=== PATIENT | female | born 1960 | race Caucasian/White ===

== ENCOUNTER 2016-08-02 11:51 | Inpatient (IN) | payer MEDICAID ==
[~2016-08-02] VITALS: Ht 152.4 cm; Wt 136.1 kg
[~2016-08-02 11:51] MED LIST: ALTACE10 MG PO; CATAPRES0.1 MG PO; FERROUS SULFAT140 MG PO; GLUCOPHAGE1000 MG PO; HYDROCODONE-APA1 TAB PO; KLOR-CON 88 MEQ PO; LASIX20 MG PO; LEVEMIR100 U/M1 SQ; MULTIPLE VITAMI1 TA1 PO; PERCOCET 10/3251 TA1 PO
[2016-08-02 13:40] LABS: APPEARANCE CLEAR (CLEAR); BILIRUBIN NEGATIVE (NEGATIVE); COLOR YELLOW (YELLOW); GLUCOSE 1000 mg/dL (NEGATIVE); KETONE SMALL mg/dL (NEGATIVE); LEUKOCYTE ESTERASE TRACE (NEGATIVE); NITRITE NEGATIVE (NEGATIVE); PROTEIN 2+ mg/dL (NEGATIVE); UROBILINOGEN NORMAL (NORMAL)
[2016-08-02 13:41] LABS: WHITE CELLS - URINE 0-5 /hpf (0-5)
[2016-08-02 13:42] LABS: BACTERIA FEW /hpf (NONE SEEN)
[2016-08-02 13:45] LABS: UDS - AMPHET NEGATIVE QUAL (NEGATIVE); UDS - BARB NEGATIVE QUAL (NEGATIVE); UDS - BENZO NEGATIVE QUAL (NEGATIVE); UDS - COCAINE NEGATIVE QUAL (NEGATIVE); UDS - METH NEGATIVE QUAL (NEGATIVE); UDS - OPIATE POSITIVE QUAL (NEGATIVE); UDS - PCP NEGATIVE QUAL (NEGATIVE); UDS - THC NEGATIVE QUAL (NEGATIVE)
[2016-08-02 13:52] LABS: BASOPHILS 0.3 % (0.0-2.0); EOSINOPHILS 0.3 % (0-7); HEMATOCRIT 45.4 % (36.0-48.0); HEMOGLOBIN 15.4 g/dL (12-16); IMMATURE GRANULOCYTES 0.3 % (0-5); LYMPHOCYTES 8.4 % (15-50); MCH 30.3 pg (26.0-34.0); MCHC 33.9 g/dL (31.0-37.0); MCV 89.2 fL (80.0-100.0); MEAN PLATELET VOLUME 10.3 fL (7.4-10.4); MONOCYTES 2.1 % (2-11); NEUTROPHILS 88.6 % (40-80); PLATELET COUNT 172 10x3/uL (130-400); RBC 5.09 10x6/uL (4.00-5.40); RDW 15.6 % (11.5-14.5); WBC 7.1 10x3/uL (4.8-10.8)
[2016-08-02 14:22] LABS: ALBUMIN 4.2 g/dL (3.4-5.0); ALKALINE PHOSPHATASE 144 U/L (46-116); ALT (SGPT) 35 U/L (10-68); BILIRUBIN - TOTAL 0.65 mg/dL (0.2-1.3); CALC OSMOLALITY 276 mosm/kg (275-300); CALCIUM 10.1 mg/dL (8.5-10.1); CARBON DIOXIDE 26.4 mmol/L (21.0-32.0); CHLORIDE - SERUM 91 mmol/L (98-107); CREATININE - SERUM 0.9 mg/dL (0.6-1.3); POTASSIUM - SERUM 4.6 mmol/L (3.5-5.1); PROTEIN - SERUM 8.2 g/dL (6.4-8.2); SODIUM 134 mmol/L (136-145); UREA NITROGEN 9 mg/dL (7-18); eGFR NON AFRICAN AMERICAN 69 mL/min (90-120)
[2016-08-02 14:23] LABS: GLUCOSE 271 mg/dL (74-106); KETONE - SERUM SMALL mg/dL (NEGATIVE)
--- NOTE | 2016-08-02 17:10 | NUR ---
RECEIVED TO ROOM 2234 VIA WC FROM ED. VERY CONFUSED. FOLLOWS SIMPLE COMMANDS BUT UNABLE TO GIVE ANY TYPE OF COHESIVE ANSWERS. YEASTY AREAS NOTED UNDER BOTH BREAST AND IN GROIN. WILL NOTIFY MD OF SAME. ALL QUESTIONS ANSWERED.
[2016-08-02 17:17] VITALS: BP 190/98; BMI 58.7
--- NOTE | 2016-08-02 17:30 | NUR ---
SPOKE WITH BETHANY ON PHONE TO GET HEALTH HISTORY AND MEDS VERIFIED. ALL QUESTIONS ANSWERED.
[2016-08-02] MEDS ORDERED: PEPCID40 MG PO (17:36)
--- NOTE | 2016-08-02 18:00 | NUR ---
IV TO RIGHT HAND OUT AND LAYING ON TOP OF HAND WITH CATH TIP INTACT. 22 GAUGE IV SITED TO RIGHT FOREARM X1 ATTEMPT. FLUSHES EASY WITH BRISK BLOOD RETURN PRESENT. SECURED WITH TAPE. WELL TOLERATED.
--- NOTE | 2016-08-02 18:56 | NUR ---
FAMILY HERE TO STAY WITH PATIENT FOR THE NIGHT R/T PATIENT'S CONFUSION. WILL CONTINUE TO MONITOR.
[2016-08-02 19:00] VITALS: BP 158/79
--- NOTE | 2016-08-02 19:40 | NUR ---
ASSESSMENT COMPLETED, NO ACUTE DISTRESS NOTED, DENIES NEEDS, FAMILY IN ROOM, CL IN REACH
--- NOTE | 2016-08-02 21:54 | NUR ---
INSULIN GIVEN PER SLIDING SCALE FOR BS OF 254, ENRRIQUE WELL, FAMILY IN ROOM, FALL PRECAUTIONS IN PLACE
[2016-08-03] VITALS: BP 172/67
--- NOTE | 2016-08-03 01:35 | NUR ---
UP TO RESTROOM WITH NO DISTRESS NOTED, RETURNED TO BED, SR'S UP, ALARM ON, CL IN REACH, FAMILY IN ROOM
[2016-08-03 05:01] LABS: BASOPHILS 0.2 % (0.0-2.0); EOSINOPHILS 0.3 % (0-7); HEMATOCRIT 42.3 % (36.0-48.0); HEMOGLOBIN 14.2 g/dL (12-16); IMMATURE GRANULOCYTES 0.5 % (0-5); LYMPHOCYTES 25.4 % (15-50); MCH 30.3 pg (26.0-34.0); MCHC 33.6 g/dL (31.0-37.0); MCV 90.4 fL (80.0-100.0); MEAN PLATELET VOLUME 10.2 fL (7.4-10.4); MONOCYTES 9.4 % (2-11); NEUTROPHILS 64.2 % (40-80); PLATELET COUNT 175 10x3/uL (130-400); RBC 4.68 10x6/uL (4.00-5.40); RDW 15.9 % (11.5-14.5); WBC 5.9 10x3/uL (4.8-10.8)
[2016-08-03 05:26] LABS: HEMOGLOBIN A1C 8.2 % (4.8-6.0)
[2016-08-03 05:28] LABS: ERYTHROCYTE SEDIMENTATION RATE 13 mm/hr (0-30)
[2016-08-03 05:29] LABS: ALBUMIN 3.2 g/dL (3.4-5.0); ALKALINE PHOSPHATASE 103 U/L (46-116); ALT (SGPT) 26 U/L (10-68); AMYLASE - SERUM 128 U/L (25-115); CALC OSMOLALITY 269 mosm/kg (275-300); CALCIUM 8.9 mg/dL (8.5-10.1); CARBON DIOXIDE 28.8 mmol/L (21.0-32.0); CHLORIDE - SERUM 95 mmol/L (98-107); CHOLESTEROL, TOTAL 176 mg/dL (0-200); CKMB 0.3 U/L (0.0-3.6); CREATININE - SERUM 0.7 mg/dL (0.6-1.3); GLUCOSE 234 mg/dL (74-106); HDL CHOLESTEROL 58 mg/dL (32-96); LDL CHOLESTEROL 88 mg/dL (0-100); LDL-HDL RATIO 1.5 ratio (1.5-3.5); LIPASE 157 U/L (73-393); MAGNESIUM - SERUM 1.7 mg/dL (1.8-2.4); PHOSPHOROUS 3.3 mg/dL (2.5-4.9); POTASSIUM - SERUM 3.6 mmol/L (3.5-5.1); SODIUM 131 mmol/L (136-145); THYROID STIMULATING HORMONE 0.74 uIU/mL (0.36-3.74); TRIGLYCERIDE 152 mg/dL (30-200); TROPONIN-I < 0.017 ng/mL (0.000-0.060); UREA NITROGEN 9 mg/dL (7-18); eGFR NON AFRICAN AMERICAN > 90 mL/min (90-120)
[2016-08-03 08:07] VITALS: BP 149/60
--- NOTE | 2016-08-03 09:00 | NUR ---
ASSESSMEN TPER FLOW SHEET.PT WITHOUT DISTRESS.DENIES NEEDS.CALL LIGHT IN REACH
--- NOTE | 2016-08-03 10:30 | NUR ---
STILL DECLING IV TO BE HOOKED UP AND TELEMETRY.PT INSTRUCTED NOT TO GET OUT OF BED,BUT TO CALL FOR HELP
--- NOTE | 2016-08-03 11:52 | NUR ---
SPOKE WITH MATTHEW AT OFFICE.US REPEAT NOT NEEDED PER
[2016-08-03 12:09] VITALS: BP 146/74
[2016-08-03 14:14] VITALS: Ht 152.4 cm; Wt 136.1 kg
[2016-08-03 16:37] VITALS: BP 157/52
[2016-08-03 17:06] LABS: APPEARANCE CLEAR (CLEAR); BILIRUBIN NEGATIVE (NEGATIVE); COLOR YELLOW (YELLOW); GLUCOSE 1000 mg/dL (NEGATIVE); KETONE NEGATIVE (NEGATIVE); LEUKOCYTE ESTERASE TRACE (NEGATIVE); NITRITE NEGATIVE (NEGATIVE); PROTEIN TRACE mg/dL (NEGATIVE); SPECIFIC GRAVITY 1.015 (1.005-1.020); UROBILINOGEN NORMAL (NORMAL)
[2016-08-03 17:07] LABS: BACTERIA FEW /hpf (NONE SEEN); EPITHELIAL CELLS 0-5 /hpf (0-5); RED CELLS - URINE OCC /hpf (0-5); WHITE CELLS - URINE 0-5 /hpf (0-5)
--- NOTE | 2016-08-03 17:14 | NUR ---
CALL TO PHARMACY FOR INSULIN,SPOKE WITH BRANDY
--- NOTE | 2016-08-03 18:43 | NUR ---
REMAINS WIHTOUT NEEDS,WITHOUT CHANGE.CONT PLAN OF CARE
[2016-08-03 19:00] VITALS: BP 183/80
--- NOTE | 2016-08-03 20:00 | NUR ---
ASSESSMENT COMPLETED, NO ACUTE DISTRESS NOTED, DTR IN ROOM, PT DENIES PAIN OR NEEDS, CL IN REACH, WILL MONITOR
--- NOTE | 2016-08-03 21:44 | NUR ---
MEDS GIVEN PER MAR, ENRRIQUE WELL, DTR AT BEDSIDE, DENIES NEEDS, CL IN REACH
--- NOTE | 2016-08-03 23:50 | NUR ---
RESTING WITH EYES CLOSED, RESP WITH EASE, NO DISTRESS NOTED, DTR IN ROOM, CL IN REACH
[2016-08-04] VITALS: BP 165/78
--- NOTE | 2016-08-04 01:30 | NUR ---
CONTINUES TO REST WITH EYES CLOSED, RESP WITH EASE, CL IN REACH
[2016-08-04 04:00] VITALS: BP 127/62
[2016-08-04 06:33] LABS: BASOPHILS 0.5 % (0.0-2.0); EOSINOPHILS 1.7 % (0-7); HEMATOCRIT 40.9 % (36.0-48.0); HEMOGLOBIN 13.4 g/dL (12-16); IMMATURE GRANULOCYTES 0.3 % (0-5); MCH 29.9 pg (26.0-34.0); MCHC 32.8 g/dL (31.0-37.0); MCV 91.3 fL (80.0-100.0); MEAN PLATELET VOLUME 10.1 fL (7.4-10.4); MONOCYTES 9.8 % (2-11); NEUTROPHILS 54.7 % (40-80); PLATELET COUNT 177 10x3/uL (130-400); RBC 4.48 10x6/uL (4.00-5.40); RDW 15.8 % (11.5-14.5); WBC 6.3 10x3/uL (4.8-10.8)
[2016-08-04 06:46] LABS: INR 1.01 (0.85-1.17); PROTIME 13.1 SECONDS (11.6-15.0)
[2016-08-04 06:51] LABS: ALBUMIN 3.3 g/dL (3.4-5.0); ALKALINE PHOSPHATASE 96 U/L (46-116); ALT (SGPT) 32 U/L (10-68); CALCIUM 9.1 mg/dL (8.5-10.1); CHLORIDE - SERUM 104 mmol/L (98-107); CREATININE - SERUM 0.8 mg/dL (0.6-1.3); POTASSIUM - SERUM 3.7 mmol/L (3.5-5.1); PROTEIN - SERUM 7.1 g/dL (6.4-8.2); SODIUM 141 mmol/L (136-145); UREA NITROGEN 11 mg/dL (7-18); eGFR NON AFRICAN AMERICAN 78 mL/min (90-120)
[2016-08-04 06:53] LABS: CALC OSMOLALITY 280 mosm/kg (275-300); GLUCOSE 110 mg/dL (74-106)
--- NOTE | 2016-08-04 07:25 | NUR ---
RECEIVED REPORT. ASSUMED CARE OF PATIENT. ALERT/AWAKE. CALL LIGHT WITHIN REACH. PATIENT COMPLAINING OF SLIGHT HEADACHE THIS AM. NO ACUTE DISTRESS. RESP EVEN AND UNLABORED.
[2016-08-04 08:28] VITALS: BP 216/85
--- NOTE | 2016-08-04 11:09 | NUR ---
Patient Name: ALISTAIR CLEANING Admission Status: ER Accout number: [id number] Admission Date: 08-02-2016 : 1960 Admission Diagnosis: Attending: ANDRY Current LOS: 2 Anticipated DC Date: 08-05-2016 Planned Disposition: Home or Self Care Primary Insurance: MEDICAID [place] Discharge Planning Comments: CM MET WITH PATIENT AND DAUGHTER (GEETA) REGARDING D/C NEEDS AND PLANS. PATIENT STATED HER SPOUSE (BETHANY) WILL PICK HER UP AT DISCHARGE. PATIENT STATED THERE ARE 4 STEPS W/RAILS TO ENTER HOME AND NO STAIRS INSIDE. PATIENT IS INDEPENDENT WITH HER CARE AND HAS NO DME AT HOME. PATIENTS PCP IS DR. PLUNKETT AND PHARMACY IS [facility] [address]. PATIENT DOES NOT WANT HH AT THIS TIME. CM WILL CONTINUE TO FOLLOW PATIENT WITH D/C NEEDS AND PLANS. PCP DR. KIARRA REDDING AND - [phone] AL (DAUGHTER) [phone] BETHANY (SPOUSE) [phone] Braiding Operator: July Medina Is the patient Alert and Oriented? Yes 0 * How many steps to enter\exit or inside your home? 4 W/RAILS 0 * PCP DR. PLUNKETT 0 * Pharmacy [facility] 0 * Preadmission Environment Home with Family 0 * ADLs Independent 0 * Equipment None 0 * List name and contact numbers for known caregivers / representatives who currently or will assist patient after discharge: GEETA (DAUGHTER) [phone] BETHANY (SPOUSE) [phone] 0 * Community resources currently utilized None 0 * Additional services required to return to the preadmission environment? Yes 0 * Can the patient safely return to the preadmission environment? Yes 0 * Has this patient been hospitalized within the prior 30 days at any hospital? No 0 Grand Total: 0
[2016-08-04 11:18] LABS: ANA REFLEX - DIRECT Negative (Negative)
[2016-08-04 11:49] VITALS: BP 151/91
--- NOTE | 2016-08-04 12:12 | NUR ---
FSBS 217. 8 UNITS HUMULIN ADMINISTERED PER SLIDING SCALE AT THIS TIME. NO DISTRESS.
[2016-08-04] MEDS ORDERED: DIFLUCAN100 MG PO (12:55)
[2016-08-04] MEDS ORDERED: CHRONULAC30 ML PO (12:56)
[2016-08-04] MEDS ORDERED: FOLIC ACID1 MG PO (12:57)
[2016-08-04] MEDS ORDERED: THIAMINE HCL50 MG PO (12:57)
--- NOTE | 2016-08-04 13:10 | NUR ---
22 GAUGE IV REMOVED FROM RIGHT WRIST PATIENT IS BEING DISCHARGED TO HOME. PRESSURE HELD TO SITE. NO BLEEDING FROM SITE. CATHETER TIP INTACT. 2X2 GAUZE APPLIED AND SECURED WITH TAPE. TOLERATED IV REMOVAL WELL.
--- NOTE | 2016-08-04 13:30 | NUR ---
DISCHARGE INSTRUCTIONS PROVIDED. VERBALIZED UNDERSTANDING OF ALL INSTRUCTIONS AND THAT SHE HAS 4 PRESCRIPTIONS TO CFA AT [facility] ON [address]. PATIENT HAD NO QUESTIONS FOR THIS TIMBER GIRDLER.
--- NOTE | 2016-08-04 13:40 | NUR ---
PATIENT LEFT UNIT VIA WHEELCHAIR WITH ALL PERSONAL BELONGINGS. PATIENT BEING DISCHARGED TO HOME WITH FAMILY VIA PRIVATE CAR. NO DISTRESS UPON LEAVING UNIT.
--- NOTE | 2016-08-04 13:46 | NUR ---
08/04/2016 13:43 CM: Case Management CM consult order rec'd to see if Xifaxin is covered by insurance. Rx called to [facility] [address] - Patient has KATELIN & will require PA. PA form filled out, signed by Dr. Burnett & faxed back to [place] [facility] for review.
== END 2016-08-04 13:45 | disposition home or self-care (01) | DRG 642 ==
LOC: D.ER 11:51 → D.MS 16:34
PROVIDERS: Family Medicine; Internal Medicine Gastroenterology; ADMIT Family Medicine Adult Medicine
DX: E72.20 Disorder of urea cycle metabolism, unspecified (principal); G93.41 Metabolic encephalopathy; E11.65 Type 2 diabetes mellitus with hyperglycemia; Z79.4 Long term (current) use of insulin; F10.10 Alcohol abuse, uncomplicated

== ENCOUNTER 2016-10-08 11:10 | Day surgery (SDC) | payer MEDICAID ==
[~2016-10-08] VITALS: Ht 152.4 cm; Wt 103.6 kg
[~2016-10-08 11:10] MED LIST changes: +CHRONULAC30 ML PO; +DIFLUCAN100 MG PO; +FOLIC ACID1 MG PO; +PEPCID40 MG PO; +THIAMINE HCL50 MG PO
[2016-10-08 12:10] LABS: BASOPHILS 0.3 % (0.0-2.0); EOSINOPHILS 1.7 % (0-7); HEMATOCRIT 41.1 % (36.0-48.0); HEMOGLOBIN 13.5 g/dL (12-16); IMMATURE GRANULOCYTES 0.2 % (0-5); LYMPHOCYTES 28.1 % (15-50); MCH 30.4 pg (26.0-34.0); MCHC 32.8 g/dL (31.0-37.0); MCV 92.6 fL (80.0-100.0); MEAN PLATELET VOLUME 10.7 fL (7.4-10.4); MONOCYTES 6.5 % (2-11); NEUTROPHILS 63.2 % (40-80); PLATELET COUNT 217 10x3/uL (130-400); RBC 4.44 10x6/uL (4.00-5.40); RDW 14.1 % (11.5-14.5); WBC 6.7 10x3/uL (4.8-10.8)
[2016-10-08 12:14] VITALS: BP 138/100; Ht 152.4 cm; Wt 103.6 kg
[2016-10-08 12:22] LABS: CALCIUM 9.5 mg/dL (8.5-10.1); CARBON DIOXIDE 27.2 mmol/L (21.0-32.0); CREATININE - SERUM 1.1 mg/dL (0.6-1.3); POTASSIUM - SERUM 4.2 mmol/L (3.5-5.1)
--- NOTE | 2016-10-08 14:40 | NUR ---
1440 AT [facility].
--- NOTE | 2016-10-08 18:21 | NUR ---
1605 IV DC WITH CATHER TIP INTACT
--- NOTE | 2016-10-20 12:04 | OP ---
PATIENT NAME: ALISTAIR CLEANING MEDICAL RECORD: [id number] :58 LOCATION:D.OPS ADMISSION DATE: SURGEON: CHANTEL LEVIN DO DATE OF OPERATION: 10/08/2016 PROCEDURE: Colonoscopy. ENDOSCOPIST: Chantel Levin DO. SCOPE: Olympus video colonoscope. MEDICATIONS: Propofol 1200 mg per anesthesia. INDICATIONS FOR PROCEDURE: Anemia. FINDINGS: Informed consent was given. The patient was made comfortable with the above medication. After reaching an adequate level of sedation by slow IV push, the patient was placed on her left side. The endoscope was then advanced under direct visualization through the anus to the cecum. In the cecum, there were 2 separate polyps. The first was a large, approximately 2 cm flat cecal polyp. Multiple attempts were made to lift this polyp, so that a snare could be performed safely. Due to the location and difficulty with lifting, biopsies were taken without removal of the polyp. There was a second cecal polyp measuring approximately 8 mm in size near the appendiceal orifice. This was removed with cold forceps. After the removal of this polyp, there was a fair amount of blood that was oozing that would not stop spontaneously. For this reason, a single Hemoclip was placed for hemostasis successfully. Upon withdrawal of the scope further, there was a transverse polyp, which measured approximately 6 mm and was sessile. This was removed with cold forceps completely. The remainder of the examination was normal. The prep was fair. A significant amount of washing was performed in the cecum and ascending colon. Withdrawal time was greater than 15 minutes. IMPRESSION: Three separate colon polyps as described above, the largest being nearly 2 cm and flat in the cecum. RECOMMENDATIONS: 1. Regarding the patient's anemia, I would recommend IV iron infusions as she has had a gastric bypass in the past and is not absorbing iron due to the bypassed segment of the duodenum. 2. Regarding the patient's large flat cecal polyp, a referral will be made to Dr. Nava for consideration of argon cauterization of the polyp. Following this, I would recommend a repeat colonoscopy in 6 months for repeat visualization of these polyps and further surveillance of the colon. TRANSINT:[id number] Voice Confirmation ID: [id number] DOCUMENT ID: [id number] OPERATIVE REPORT [id number] ALISTAIR CLEANING CHANTEL LEVIN DO at 1204 CC: [id number] DICTATION DATE: 10/08/16 1520 [facility]: 10/08/16 2324 [facility] 10/08/16 [id number] [place] [address]
== END 2016-10-08 16:45 | disposition home or self-care (01) ==
LOC: D.OPS 11:10
PROVIDERS: Anesthesiology
DX: D12.0 Benign neoplasm of cecum (principal); D12.3 Benign neoplasm of transverse colon; J45.909 Unspecified asthma, uncomplicated; I10 Essential (primary) hypertension; K21.9 Gastro-esophageal reflux disease without esophagitis; E11.9 Type 2 diabetes mellitus without complications; K74.60 Unspecified cirrhosis of liver; M19.90 Unspecified osteoarthritis, unspecified site; Z98.84 Bariatric surgery status

== ENCOUNTER 2017-02-10 06:50 | Day surgery (SDC) | payer MEDICAID ==
[~2017-02-10] VITALS: Ht 152.4 cm; Wt 106.4 kg
[~2017-02-10 06:50] MED LIST changes: +ALDACTAZIDE 25/1 TAB PO; +FUROSEMIDE20 MG PO; +NOVOLOG MIX 70/10 ML SQ; +POTASSIUM99 M1 PO; +TENORMIN50 MG PO
[2017-02-10 07:52] VITALS: BP 104/47; Ht 152.4 cm; Wt 106.4 kg
[2017-02-10 07:54] LABS: HEMATOCRIT 38.1 % (36.0-48.0); HEMOGLOBIN 12.5 g/dL (12-16); MCH 30.5 pg (26.0-34.0); MCHC 32.8 g/dL (31.0-37.0); MCV 92.9 fL (80.0-100.0); MEAN PLATELET VOLUME 9.9 fL (7.4-10.4); RBC 4.1 10x6/uL (4.00-5.40); RDW 13.5 % (11.5-14.5); WBC 6.9 10x3/uL (4.8-10.8)
[2017-02-10 07:58] LABS: APTT 26.5 SECONDS (22.8-39.4); INR 1.03 (0.85-1.17); PROTIME 13.3 SECONDS (11.6-15.0)
[2017-02-10 08:15] LABS: ALBUMIN 3.7 g/dL (3.4-5.0); BILIRUBIN - TOTAL 0.57 mg/dL (0.2-1.3); CALCIUM 8.9 mg/dL (8.5-10.1); CARBON DIOXIDE 21.3 mmol/L (21.0-32.0); CREATININE - SERUM 1.1 mg/dL (0.6-1.3); POTASSIUM - SERUM 4.3 mmol/L (3.5-5.1); PROTEIN - SERUM 7.5 g/dL (6.4-8.2)
== END 2017-02-10 14:45 | disposition home or self-care (01) ==
LOC: D.OPS 06:50 → D.PAN 08:00 → D.OPS 08:30
PROVIDERS: Anesthesiology
DX: D12.0 Benign neoplasm of cecum (principal); Z01.812 Encounter for preprocedural laboratory examination

== ENCOUNTER 2017-03-28 07:41 | Emergency (ER) | payer MEDICAID ==
[2017-02-10 07:52] VITALS: BMI 45.7
== END 2017-03-28 08:32 | disposition home or self-care (01) ==
LOC: D.ER 07:41
DX: S42.251A Displaced fracture of greater tuberosity of right humerus, initial encounter for closed fracture (principal); W01.0XXA Fall on same level from slipping, tripping and stumbling without subsequent striking against object, initial encounter; Y93.89 Activity, other specified; Y92.89 Other specified places as the place of occurrence of the external cause; I10 Essential (primary) hypertension

== ENCOUNTER 2018-12-27 10:23 | Emergency (ER) | payer MEDICAID ==
[~2018-12-27] VITALS: Ht 152.4 cm; Wt 119.1 kg
[2018-12-27 10:28] VITALS: Ht 152.4 cm; Wt 119.1 kg
[2018-12-27] MEDS ORDERED: SYNJARDY (10:32)
[2018-12-27 11:31] LABS: APPEARANCE CLEAR (CLEAR); COLOR YELLOW (YELLOW); GLUCOSE 250 mg/dL (NEGATIVE); NITRITE NEGATIVE (NEGATIVE); PROTEIN NEGATIVE (NEGATIVE)
[2018-12-27 11:32] LABS: BACTERIA FEW /hpf (NONE SEEN); BILIRUBIN NEGATIVE (NEGATIVE); EPITHELIAL CELLS OCC /hpf (0-5); KETONE NEGATIVE (NEGATIVE); RED CELLS - URINE 0-5 /hpf (0-5); UROBILINOGEN NORMAL (NORMAL); WHITE CELLS - URINE OCC /hpf (0-5)
[2018-12-27] MEDS ORDERED: MACROBID100 MG PO (12:45)
[2018-12-27] MEDS ORDERED: VOLTAREN75 MG PO (12:45)
[2018-12-27 13:40] VITALS: BP 185/85
== END 2018-12-27 13:41 | disposition home or self-care (01) ==
LOC: D.ER 10:23
PROVIDERS: Emergency Medicine
DX: M54.5 Low back pain (principal); N39.0 Urinary tract infection, site not specified; V43.62XA Car passenger injured in collision with other type car in traffic accident, initial encounter; Y93.89 Activity, other specified; Y92.410 Unspecified street and highway as the place of occurrence of the external cause

== ENCOUNTER 2019-01-08 18:00 | Emergency (ER) | payer MEDICAID ==
[~2019-01-08] VITALS: Ht 152.4 cm; Wt 122.3 kg
[~2019-01-08 18:00] MED LIST changes: +MACROBID100 MG PO; +SYNJARDY; +VOLTAREN75 MG PO
[2019-01-08 18:13] VITALS: Ht 152.4 cm; Wt 122.3 kg
[2019-01-08 20:01] LABS: BASOPHILS 0.7 % (0-2); EOSINOPHILS 3.2 % (0-7); HEMATOCRIT 33.1 % (36.0-48.0); HEMOGLOBIN 11.4 g/dL (12-16); IMMATURE GRANULOCYTES 0.1 % (0-5); LYMPHOCYTES 24.2 % (15-50); MCH 30.3 pg (26.0-34.0); MCHC 34.4 g/dL (31.0-37.0); MEAN PLATELET VOLUME 8.9 fL (7.4-10.4); MONOCYTES 8.2 % (2-11); NEUTROPHILS 63.6 % (40-80); PLATELET COUNT 277 10x3/uL (130-400); RBC 3.76 10x6/uL (4.00-5.40); RDW 13.3 % (11.5-14.5); WBC 7.5 10x3/uL (4.8-10.8)
[2019-01-08 20:17] LABS: ALBUMIN 3.8 g/dL (3.4-5.0); ANION GAP 15.8 mmol/L (8-16); BILIRUBIN - TOTAL 0.38 mg/dL (0.2-1.3); CALCIUM 9.3 mg/dL (8.5-10.1); CARBON DIOXIDE 25.4 mmol/L (21.0-32.0); CREATININE - SERUM 2.1 mg/dL (0.6-1.3); POTASSIUM - SERUM 4.2 mmol/L (3.5-5.1); PROTEIN - SERUM 8.5 g/dL (6.4-8.2)
[2019-01-08 20:53] LABS: APPEARANCE TURBID (CLEAR); COLOR RED (YELLOW)
[2019-01-08 20:54] LABS: BILIRUBIN NEGATIVE (NEGATIVE); GLUCOSE 250 mg/dL (NEGATIVE); KETONE NEGATIVE (NEGATIVE); NITRITE POSITIVE (NEGATIVE); PROTEIN 2+ mg/dL (NEGATIVE); UROBILINOGEN NORMAL (NORMAL)
[2019-01-08 20:56] LABS: EPITHELIAL CELLS 0-5 /hpf (0-5); RED CELLS - URINE >50 /hpf (0-5)
[2019-01-08 20:57] LABS: BACTERIA MODERATE /hpf (NONE SEEN)
[2019-01-08] MEDS ORDERED: MACROBID100 MG PO (22:12)
[2019-01-08 22:41] VITALS: BP 190/84
== END 2019-01-08 22:42 | disposition home or self-care (01) ==
LOC: D.ER 18:00
PROVIDERS: Family Medicine
DX: N39.0 Urinary tract infection, site not specified (principal); E11.9 Type 2 diabetes mellitus without complications; R31.9 Hematuria, unspecified; I10 Essential (primary) hypertension; M54.5 Low back pain; N28.9 Disorder of kidney and ureter, unspecified

== ENCOUNTER 2019-02-25 08:54 | Inpatient (IN) | payer MEDICAID ==
[~2019-02-25] VITALS: Ht 152.4 cm; Wt 123.4 kg
[2019-02-25 09:30] LABS: BASOPHILS 0.6 % (0-2); EOSINOPHILS 5.6 % (0-7); HEMATOCRIT 20.4 % (36.0-48.0); IMMATURE GRANULOCYTES 0.2 % (0-5); LYMPHOCYTES 18.5 % (15-50); MCH 30.5 pg (26.0-34.0); MCHC 35.3 g/dL (31.0-37.0); MCV 86.4 fL (80.0-100.0); MEAN PLATELET VOLUME 8.9 fL (7.4-10.4); MONOCYTES 8.6 % (2-11); NEUTROPHILS 66.5 % (40-80); RBC 2.36 10x6/uL (4.00-5.40); RDW 14.5 % (11.5-14.5); WBC 4.9 10x3/uL (4.8-10.8)
[2019-02-25 09:33] LABS: HEMOGLOBIN 7.2 g/dL (12-16); PLATELET COUNT 337 10x3/uL (130-400)
[2019-02-25 09:34] LABS: APPEARANCE HAZY (CLEAR); APTT 32.3 SECONDS (22.8-39.4); BACTERIA NONE SEEN /hpf (NONE SEEN); BILIRUBIN NEGATIVE (NEGATIVE); COLOR YELLOW (YELLOW); EPITHELIAL CELLS 0-5 /hpf (0-5); GLUCOSE NEGATIVE (NEGATIVE); INR 1.11 (0.85-1.17); KETONE NEGATIVE (NEGATIVE); NITRITE NEGATIVE (NEGATIVE); PROTEIN NEGATIVE (NEGATIVE); PROTIME 13.8 SECONDS (11.6-15.0); UROBILINOGEN NORMAL (NORMAL)
[2019-02-25 09:38] LABS: ANION GAP 19.9 mmol/L (8-16); BILIRUBIN - TOTAL 0.41 mg/dL (0.2-1.3); CALCIUM 9.1 mg/dL (8.5-10.1); CARBON DIOXIDE 17.8 mmol/L (21.0-32.0); CREATININE - SERUM 2.5 mg/dL (0.6-1.3); POTASSIUM - SERUM 4.7 mmol/L (3.5-5.1); PROTEIN - SERUM 8.2 g/dL (6.4-8.2)
[2019-02-25 10:41] VITALS: BP 153/58; BMI 53.2
--- NOTE | 2019-02-25 11:05 | NUR ---
BLOOD TRANSFUSION INITIATED. VITALS STABLE.
--- NOTE | 2019-02-25 11:20 | NUR ---
BLOOD CONTINUES INFUSING. VITALS REMAIN STABLE.
--- NOTE | 2019-02-25 13:00 | NUR ---
RESTING IN BED. DAUGHTER AT BEDSIDE. DENIES PAIN. DENIES NEEDS. WILL CONTINUE TO MONITOR.
--- NOTE | 2019-02-25 13:52 | NUR ---
BLOOD TRANFUSION UNIT 1 COMPLETE. VITALS STABLE.
--- NOTE | 2019-02-25 14:00 | NUR ---
BLOOD TRANSFUSION UNIT 2 INITIATED. VITALS STABLE.
--- NOTE | 2019-02-25 14:15 | NUR ---
BLOOD CONTINUES INFUSING. VITALS REMAIN STABLE.
--- NOTE | 2019-02-25 16:33 | NUR ---
TIMING OF IRON ADMINISTRATION ADJUSTED D/T PATIENT RECEIVING BLOOD
--- NOTE | 2019-02-25 16:55 | NUR ---
BLOOD TRANSFUSION UNIT 2 COMPLETE. VITALS STABLE.
--- NOTE | 2019-02-25 17:05 | NUR ---
BLOOD TRANSFUSION UNIT 3 INITIATED. VITALS STABLE.
[2019-02-25 17:17] LABS: HEMATOCRIT 24.2 % (36.0-48.0); HEMOGLOBIN 8.4 g/dL (12-16)
--- NOTE | 2019-02-25 17:19 | NUR ---
BLOOD CONTINUES INFUSING. VITALS REMAIN STABLE.
--- NOTE | 2019-02-25 17:37 | NUR ---
BLOOD TRANSFUSING. WILL PASS REPORT TO NOC ANALYST RN TO GIVE IRON WHEN BLOOD TRANSFUSION COMPLETE.
--- NOTE | 2019-02-25 17:44 | NUR ---
RESTING IN BED. DENIES PAIN. DENIES NEEDS. DAUGHTER AT BEDSIDE. WILL CONTINUE TO MONITOR.
--- NOTE | 2019-02-25 18:26 | NUR ---
RESTING IN BED. DAUGHTER AT BEDSIDE. BED LOW. CALL CALVERT AND PERSONAL ITEMS IN REACH. DENIES PAIN. DENIES NEEDS.
--- NOTE | 2019-02-25 19:15 | NUR ---
RECEIVED CARE FROM DAY NURSE. SITTING UP IN BED WITH COMPANY AT SIDE. IV INFUSING BLOOD TO PATENT RIGHT WRIST. CALL LIGHT AT SIDE. REPORTS NO NEEDS AT THIS TIME.
[2019-02-25 20:00] VITALS: BP 160/61
[2019-02-26] VITALS: BP 169/65
--- NOTE | 2019-02-26 03:00 | NUR ---
I have reviewed this patient and I concur with the Shift Assessment completed by the Licensed Practical Nurse today this shift.
[2019-02-26 04:00] VITALS: BP 152/59
[2019-02-26 05:57] LABS: BASOPHILS 0.6 % (0-2); HEMATOCRIT 24.7 % (36.0-48.0); HEMOGLOBIN 8.8 g/dL (12-16); IMMATURE GRANULOCYTES 0.2 % (0-5); LYMPHOCYTES 8.7 % (15-50); MCH 29.8 pg (26.0-34.0); MCHC 35.6 g/dL (31.0-37.0); MCV 83.7 fL (80.0-100.0); MEAN PLATELET VOLUME 8.8 fL (7.4-10.4); MONOCYTES 10.3 % (2-11); NEUTROPHILS 77.2 % (40-80); PLATELET COUNT 228 10x3/uL (130-400); RBC 2.95 10x6/uL (4.00-5.40); RDW 15.7 % (11.5-14.5); WBC 4.9 10x3/uL (4.8-10.8)
[2019-02-26 06:10] LABS: ALBUMIN 3.2 g/dL (3.4-5.0); ANION GAP 17.5 mmol/L (8-16); BILIRUBIN - TOTAL 1.78 mg/dL (0.2-1.3); CALCIUM 8.5 mg/dL (8.5-10.1); CARBON DIOXIDE 16.9 mmol/L (21.0-32.0); CREATININE - SERUM 2.2 mg/dL (0.6-1.3); MAGNESIUM - SERUM 2.6 mg/dL (1.8-2.4); POTASSIUM - SERUM 4.4 mmol/L (3.5-5.1)
--- NOTE | 2019-02-26 09:00 | NUR ---
ALERT AND ORIENTED X4. ABDOMEN OBESE WITH BS NOTEDX4. IVF INFUSING RT. WRIST. TELEMETRY INTACT WITH HRRR. FAMILY PRESENT AND ENCOURAGED TO USE CALL LIGHT FOR ASSIST. ENCOURAGED TO USE CALL LIGHT FOR ASSIST. DENIES ANY PAIN OR DISCOMFORT.
[2019-02-26 09:08] VITALS: BP 162/61
[2019-02-26 11:36] VITALS: BP 179/57
[2019-02-26 16:31] VITALS: BP 174/66
[2019-02-26 17:59] LABS: HEMATOCRIT 25.8 % (36.0-48.0); HEMOGLOBIN 8.9 g/dL (12-16)
--- NOTE | 2019-02-26 19:15 | NUR ---
RECEIVED CARE FROM DAY NURSE. LYING IN BED WITH DAUGHTER AT SIDE. REPORTS NO NEEDS AT THIS TIME. CALL LIGHT AT SIDE. IV INFUSING PER ORDER TO PATENT RIGHT WRIST. NO NEEDS VOICED AT THIS TIME.
[2019-02-26 20:00] VITALS: BP 177/80
[2019-02-27] VITALS: BP 173/60
--- NOTE | 2019-02-27 03:00 | NUR ---
I have reviewed this patient and I concur with the Shift Assessment completed by the Licensed Practical Nurse today this shift.
[2019-02-27 04:00] VITALS: BP 170/62
[2019-02-27 04:55] LABS: BASOPHILS 0.3 % (0-2); EOSINOPHILS 0.9 % (0-7); HEMATOCRIT 24.3 % (36.0-48.0); HEMOGLOBIN 8.3 g/dL (12-16); IMMATURE GRANULOCYTES 0.1 % (0-5); LYMPHOCYTES 6.4 % (15-50); MCH 29.2 pg (26.0-34.0); MCHC 34.2 g/dL (31.0-37.0); MCV 85.6 fL (80.0-100.0); MEAN PLATELET VOLUME 8.8 fL (7.4-10.4); MONOCYTES 6.6 % (2-11); NEUTROPHILS 85.7 % (40-80); PLATELET COUNT 249 10x3/uL (130-400); RBC 2.84 10x6/uL (4.00-5.40); RDW 15.8 % (11.5-14.5)
[2019-02-27 05:03] LABS: WBC 6.7 10x3/uL (4.8-10.8)
[2019-02-27 05:18] LABS: ALBUMIN 3.2 g/dL (3.4-5.0); ANION GAP 17.1 mmol/L (8-16); BILIRUBIN - TOTAL 0.59 mg/dL (0.2-1.3); CALCIUM 8.4 mg/dL (8.5-10.1); CARBON DIOXIDE 18.9 mmol/L (21.0-32.0); CREATININE - SERUM 2.1 mg/dL (0.6-1.3); MAGNESIUM - SERUM 2.1 mg/dL (1.8-2.4); PROTEIN - SERUM 6.9 g/dL (6.4-8.2)
[2019-02-27 09:02] VITALS: BP 179/70
[2019-02-27 12:54] VITALS: BP 121/98
[2019-02-27 17:00] LABS: HEMATOCRIT 23.6 % (36.0-48.0); HEMOGLOBIN 8.1 g/dL (12-16)
--- NOTE | 2019-02-27 17:11 | NUR ---
PT RESTING IN BED. NO SIGNS OF DISTRESS. ON TELEMETRY 79 SR BBB. IV OUT AT THIS TIME. DENIES ANY NEED AT THIS TIME. CALL LIGHT IN REACH. BED LOW POSITION. FAMILY AT BEDSIDE.
[2019-02-27 17:42] VITALS: BP 180/68
--- NOTE | 2019-02-27 19:36 | NUR ---
IN BED WITH TELEVISION ON, FAMILY AT BEDSIDE. ABLE TO VOICE ALL NEEDS, DENIES PAIN AT THIS TIME. IV TO RIGHT UPPER CHEST PATENT INFUSING NORMAL SALINE AT 125/HR. WILL NOTE ANY CHANGE.
[2019-02-27 21:10] VITALS: BP 176/68
[2019-02-28 01:18] VITALS: BP 160/54
--- NOTE | 2019-02-28 03:43 | NUR ---
HAS RESTED FAIR THIS SHIFT, WAS UP WATCHING TELEVISION AT 0300, IN A PLEASANT MOOD, JOKED, LAUGHED AND SMILED WITH THIS NURSE. DENIED ANY PAIN AT THAT TIME, ABLE TO VOICE ALL NEEDS. WILL NOTE ANY CHANGE.
--- NOTE | 2019-02-28 03:56 | NUR ---
I have reviewed this patient and I concur with the Shift Assessment completed by the Licensed Practical Nurse today this shift.
[2019-02-28 04:31] LABS: BASOPHILS 0.2 % (0-2); EOSINOPHILS 2.3 % (0-7); HEMATOCRIT 23.8 % (36.0-48.0); IMMATURE GRANULOCYTES 0.5 % (0-5); MCH 29.1 pg (26.0-34.0); MCHC 33.6 g/dL (31.0-37.0); MCV 86.5 fL (80.0-100.0); MEAN PLATELET VOLUME 8.7 fL (7.4-10.4); PLATELET COUNT 236 10x3/uL (130-400); RBC 2.75 10x6/uL (4.00-5.40); RDW 16.2 % (11.5-14.5); WBC 6.4 10x3/uL (4.8-10.8)
[2019-02-28 04:51] LABS: ALBUMIN 3.3 g/dL (3.4-5.0); ANION GAP 18.7 mmol/L (8-16); BILIRUBIN - TOTAL 0.68 mg/dL (0.2-1.3); CALCIUM 8.8 mg/dL (8.5-10.1); MAGNESIUM - SERUM 1.6 mg/dL (1.8-2.4); POTASSIUM - SERUM 3.7 mmol/L (3.5-5.1); PROTEIN - SERUM 7.3 g/dL (6.4-8.2)
[2019-02-28 05:22] VITALS: BP 185/46
[2019-02-28 08:43] VITALS: BP 179/73
[2019-02-28 12:04] VITALS: BP 186/79
--- NOTE | 2019-02-28 16:31 | NUR ---
PT RESTING IN BED. NO SIGNS OF DISTRESS. IV TO RIGHT CHEST PATENT NO REDNESS OR TENDERNESS. ON TELEMETRY 83 SR BBB. DENIES ANY NEED AT THIS TIME. CALL LIGHT IN REACH. BED LOW POSITION. FAMILY AT BEDSIDE.
[2019-02-28 17:32] LABS: HEMOGLOBIN 8.1 g/dL (12-16)
--- NOTE | 2019-02-28 18:20 | NUR ---
I have reviewed this patient and I concur with the Shift Assessment completed by the Licensed Practical Nurse today this shift.
[2019-02-28 20:51] VITALS: BP 158/56
--- NOTE | 2019-02-28 23:08 | NUR ---
UP IN BED WITH EYES OPEN AND TELEVISION ON, FAMILY AT BEDSIDE, IV TO RIGHT CHEST IS PATENT WITH FLUIDS RUNNING PER ORDERS. ALERT AND ORIENTED TIMES THREE, SHOWS NO S/S OF ANY ACUTE DISTRESS. ABLE TO VOICE ALL NEEEDS, DENIES PAIN AT THIS TIME. WILL NOTE ANY CHANGE.
--- NOTE | 2019-03-01 02:48 | NUR ---
I have reviewed this patient and I concur with the Shift Assessment completed by the Licensed Practical Nurse today this shift.
[2019-03-01 04:48] VITALS: BP 149/51
[2019-03-01 06:29] LABS: BASOPHILS 0.4 % (0-2); EOSINOPHILS 5.9 % (0-7); HEMATOCRIT 21.1 % (36.0-48.0); IMMATURE GRANULOCYTES 0.2 % (0-5); MCH 28.9 pg (26.0-34.0); MCHC 33.2 g/dL (31.0-37.0); MCV 87.2 fL (80.0-100.0); MEAN PLATELET VOLUME 8.7 fL (7.4-10.4); MONOCYTES 11.1 % (2-11); NEUTROPHILS 64.4 % (40-80); PLATELET COUNT 192 10x3/uL (130-400); RBC 2.42 10x6/uL (4.00-5.40); RDW 16.3 % (11.5-14.5)
[2019-03-01 06:34] LABS: WBC 4.6 10x3/uL (4.8-10.8)
--- NOTE | 2019-03-01 06:49 | NUR ---
NOTIFIED OF [facility]IT[facility] LAB VALUE OF HGB 7 AND HCT 21, NOTIFIED JEROME WITH ORDERS TO NOTIFY DR. RUSH, DR. RUSH GAVE ORDERS FOR 2 UNITS PRBCS. ORDER SUBMITTED, JEROME ALSO ORDERED OCCULT BLOOD TEST. WILL NOTE ANY CHANGE.
[2019-03-01 06:50] LABS: ALBUMIN 2.9 g/dL (3.4-5.0); ANION GAP 16.3 mmol/L (8-16); BILIRUBIN - TOTAL 0.57 mg/dL (0.2-1.3); CALCIUM 8.5 mg/dL (8.5-10.1); CARBON DIOXIDE 19.1 mmol/L (21.0-32.0); CREATININE - SERUM 1.7 mg/dL (0.6-1.3); MAGNESIUM - SERUM 1.7 mg/dL (1.8-2.4); POTASSIUM - SERUM 3.4 mmol/L (3.5-5.1); PROTEIN - SERUM 6.5 g/dL (6.4-8.2)
--- NOTE | 2019-03-01 07:30 | NUR ---
ALERT AND ORIENTED, SITTING UP ON THE SIDE OF THE BED. H&H LOW THIS AM 7.0/21.1. PHYSICIAN AWARE. 2 UNITS PRBCS ORDERED TO TRANSFUSE TODAY. ON ELECTROLYTE PROTOCOL. POTASSIUM AND MAGNESIUM LOW THIS AM, FIRST DOSE GIVEN ON PRIOR SHIFT. PT ACHS. IV TO RIGHT BREAST, NS INFUSING @ 125ML/HR. SITE PATENT WITHOUT REDNESS OR SWELLING. NO C/O PAIN. NO S/S OF ACUTE DISTRESS NOTED. PT DENIES ANY NEEDS AT THIS TIME. CALL LIGHT IN REACH. WILL CONTINUE TO MONITOR.
[2019-03-01 08:48] VITALS: BP 149/84
--- NOTE | 2019-03-01 10:45 | NUR ---
STARTED BLOOD TRANSFUSION. VITALS STABLE. NO C/O PAIN. NO S/S OF ACUTE DISTRESS NOTED. WILL CONTINUE TO MONITOR.
--- NOTE | 2019-03-01 14:09 | NUR ---
PATIENT TAKEN TO SURGERY VIA BED ACCOMPANIED BY OR STAFF.
--- NOTE | 2019-03-01 14:11 | NUR ---
DISCARDED REMAINING PRBC [id number] BAG WITH BLOOD LEFT STILL TO INFUSE, DUE TO IV INFILTRATED AND PATIENT WILL NEED A LINE BY VASCULAR ACCESS NURSE. IV PUMP STATED THAT THERE WAS 199CC INFUSED, DISCARDED REMAINING BLOOD BECAUSE IT WAS CLOSE TO THE 4 HOURS NAEL PER ALFREDO IVY MECHANICAL ENGINEERING DIRECTOR REQUEST RACHNA RANGEL NOTIFED OF ABOVE
[2019-03-01 17:57] LABS: HEMATOCRIT 22.9 % (36.0-48.0); HEMOGLOBIN 7.6 g/dL (12-16)
--- NOTE | 2019-03-01 18:00 | NUR ---
STARTED 2ND UNIT OF PRBC. MIX UP IN LAB ON UNIT OF PRBC. PT VITALS STABLE. NO C/O PAIN. NO S/S OF ACUTE DISTRESS NOTED. PT DENIES ANY NEEDS. WILL CONTINUE TO MONITOR.
[2019-03-01 18:20] VITALS: BP 173/63
--- NOTE | 2019-03-01 18:50 | NUR ---
ALERT AND ORIENTED. BLOOD TRANSFUSING. NO C/O PAIN. NO S/S OF ACUTE DISTRESS NOTED. PT DENIES ANY NEEDS. CALL LIGHT IN REACH. WILL CONTINUE TO MONITOR.
[2019-03-01 22:18] VITALS: BP 176/62
--- NOTE | 2019-03-02 04:43 | NUR ---
I have reviewed this patient and I concur with the Shift Assessment completed by the Licensed Practical Nurse today this shift.
[2019-03-02 05:46] VITALS: BP 142/56
[2019-03-02 07:11] LABS: BASOPHILS 0.8 % (0-2); EOSINOPHILS 7.4 % (0-7); HEMATOCRIT 23.6 % (36.0-48.0); HEMOGLOBIN 7.9 g/dL (12-16); IMMATURE GRANULOCYTES 0.3 % (0-5); LYMPHOCYTES 21.7 % (15-50); MCH 29.6 pg (26.0-34.0); MCHC 33.5 g/dL (31.0-37.0); MCV 88.4 fL (80.0-100.0); MEAN PLATELET VOLUME 9.4 fL (7.4-10.4); MONOCYTES 10.1 % (2-11); NEUTROPHILS 59.7 % (40-80); PLATELET COUNT 194 10x3/uL (130-400); RBC 2.67 10x6/uL (4.00-5.40); RDW 16.6 % (11.5-14.5); WBC 3.8 10x3/uL (4.8-10.8)
[2019-03-02 07:28] LABS: ALBUMIN 2.9 g/dL (3.4-5.0); BILIRUBIN - TOTAL 0.72 mg/dL (0.2-1.3); CALCIUM 8.4 mg/dL (8.5-10.1); CARBON DIOXIDE 18.4 mmol/L (21.0-32.0); CREATININE - SERUM 1.7 mg/dL (0.6-1.3); MAGNESIUM - SERUM 1.6 mg/dL (1.8-2.4); PROTEIN - SERUM 6.5 g/dL (6.4-8.2)
--- NOTE | 2019-03-02 07:30 | NUR ---
ALERT AND ORIENTED. RESTING IN BED, EYES CLOSED. RESPIRATIONS EVEN AND UNLABORED. NO C/O PAIN. NO S/S OF ACUTE DISTRESS NOTED. ON ELECTROLYTE PROTOCOL. PT DENIES ANY NEEDS AT THIS TIME. CALL LIGHT IN REACH. WILL CONTINUE TO MONITOR.
[2019-03-02 07:33] LABS: ANION GAP 17.7 mmol/L (8-16); POTASSIUM - SERUM 4.1 mmol/L (3.5-5.1)
[2019-03-02 10:52] VITALS: BP 142/76
[2019-03-02 13:33] VITALS: BP 183/68
[2019-03-02 17:23] VITALS: BP 193/74
--- NOTE | 2019-03-02 18:52 | NUR ---
ALERT AND ORIENTED, SITTING ON SIDE OF THE BED. IV INFILTRATED, VERY HARD STICK. PT REFUSED LAB DRAW THIS EVENING. PT EMOTIONAL AT TIMES. CALL LIGHT IN REACH. WILL CONTINUE TO MONITOR.
--- NOTE | 2019-03-02 20:50 | NUR ---
IV RESTARTED PER ICU NURSE TO RIGHT WRIST. TOLERATED WELL. NO COMPLAINTS VOICED AT THIS TIME.CL IN REACH
[2019-03-02 21:09] VITALS: BP 177/88
[2019-03-02 21:33] LABS: HEMATOCRIT 26.6 % (36.0-48.0); HEMOGLOBIN 8.7 g/dL (12-16)
[2019-03-03 01:30] VITALS: BP 136/64
--- NOTE | 2019-03-03 03:59 | NUR ---
I have reviewed this patient and I concur with the Shift Assessment completed by the Licensed Practical Nurse today this shift.
[2019-03-03 04:11] LABS: BASOPHILS 0.2 % (0-2); EOSINOPHILS 6.7 % (0-7); HEMATOCRIT 22.9 % (36.0-48.0); IMMATURE GRANULOCYTES 0.2 % (0-5); LYMPHOCYTES 22.3 % (15-50); MCHC 32.8 g/dL (31.0-37.0); MCV 88.4 fL (80.0-100.0); MEAN PLATELET VOLUME 8.9 fL (7.4-10.4); MONOCYTES 10.9 % (2-11); NEUTROPHILS 59.7 % (40-80); PLATELET COUNT 172 10x3/uL (130-400); RBC 2.59 10x6/uL (4.00-5.40); RDW 16.4 % (11.5-14.5)
[2019-03-03 04:12] LABS: HEMOGLOBIN 7.5 g/dL (12-16)
[2019-03-03 04:20] LABS: ALBUMIN 2.7 g/dL (3.4-5.0); ANION GAP 16.8 mmol/L (8-16); BILIRUBIN - TOTAL 0.47 mg/dL (0.2-1.3); CALCIUM 8.3 mg/dL (8.5-10.1); CARBON DIOXIDE 18.1 mmol/L (21.0-32.0); CREATININE - SERUM 1.8 mg/dL (0.6-1.3); POTASSIUM - SERUM 3.9 mmol/L (3.5-5.1); PROTEIN - SERUM 6.1 g/dL (6.4-8.2)
[2019-03-03 06:00] VITALS: BP 166/63
[2019-03-03 08:24] VITALS: BP 165/73
--- NOTE | 2019-03-03 09:00 | NUR ---
ALERT AND ORIENTEDX3 WITH ABDOMEN OBESE WITH BS NOTED. DENIES ANY PAINOR DISCOMFORT AT THIS TIME. IVF INFUSING AT PRESCRIBED RATE TO LT. HAND. ENCOURAGED TO USE CALL LIGHT FOR ASSIST.
--- NOTE | 2019-03-03 09:51 | MORECARE ---
CASE MANAGEMENT DISCHARGE SUMMARY PATIENT: ALISTAIR CLEANING UNIT: [id number] ADM DATE: 02/25/19 AGE: 58 : 58 SEX: F ROOM/BED: D.2226 AUTHOR: ORQUIDEA LOPEZ PHYSICIAN: REFERRING PHYSICIAN: CAROLIN LINDO MD DATE OF SERVICE: 03/03/19 Discharge Plan Patient Name: ALISTAIR CLEANING [facility] [facility] 1960 Planned Disposition: Anticipated Discharge Date: Discharge Date: Expected LOS: Initial Reviewer: [email or web address] Initial Review Date: 03/03/2019 Generated: 03/03/19 10:51 am DCPIA - Discharge Planning Initial Assessment Updated by [email or web address]: Slime Coulter on 03/03/19 9:49 am * Is the patient Alert and Oriented? Yes * PCP SUSAN * Pharmacy [facility] * Preadmission Environment Home with Family * ADLs Independent * Equipment None * List name and contact numbers for known caregivers / representatives who currently or will assist patient after discharge: BETHANY JEAN, * Community resources currently utilized None * Additional services required to return to the preadmission environment? No * Can the patient safely return to the preadmission environment? Yes * Has this patient been hospitalized within the prior 30 days at any hospital? No Patient Name: ALISTAIR CLEANING Page [phone] at [id number] All edits/amendments must be made on the electronic document DICTATION DATE: 03/03/19950 [place] OPERATOR: RAUL 03/03/19950 RPT#: [id number] DC DATE: STATUS: ADM IN [facility] [address] [place] [address] END OF REPORT
[2019-03-03 13:40] VITALS: BP 141/45
[2019-03-03 13:59] VITALS: BMI 53.1
--- NOTE | 2019-03-03 16:15 | NUR ---
STARTED 1ST UNIT PRBC'S WITH NO S/S OF REACTION NOTED VIA MIDLINE TO RUE
[2019-03-03 16:45] VITALS: BP 166/72
[2019-03-03 20:00] VITALS: BP 170/76
[2019-03-03 21:56] LABS: HEMATOCRIT 30.8 % (36.0-48.0); HEMOGLOBIN 10.1 g/dL (12-16)
[2019-03-04] VITALS (9 sets, daily range): BP systolic 100–184; BP diastolic 52–77
[2019-03-04 06:47] LABS: BASOPHILS 0.5 % (0-2); EOSINOPHILS 6.2 % (0-7); HEMATOCRIT 28.5 % (36.0-48.0); HEMOGLOBIN 9.4 g/dL (12-16); IMMATURE GRANULOCYTES 0.3 % (0-5); LYMPHOCYTES 19.8 % (15-50); MCH 29.3 pg (26.0-34.0); MCV 88.8 fL (80.0-100.0); MEAN PLATELET VOLUME 9.2 fL (7.4-10.4); MONOCYTES 11.9 % (2-11); NEUTROPHILS 61.3 % (40-80); PLATELET COUNT 168 10x3/uL (130-400); RDW 15.7 % (11.5-14.5); WBC 3.7 10x3/uL (4.8-10.8)
[2019-03-04 06:48] LABS: RBC 3.21 10x6/uL (4.00-5.40)
[2019-03-04 07:01] LABS: ALBUMIN 2.8 g/dL (3.4-5.0); ANION GAP 15.4 mmol/L (8-16); BILIRUBIN - TOTAL 0.65 mg/dL (0.2-1.3); CALCIUM 8.5 mg/dL (8.5-10.1); CARBON DIOXIDE 20.2 mmol/L (21.0-32.0); CREATININE - SERUM 1.7 mg/dL (0.6-1.3); POTASSIUM - SERUM 3.6 mmol/L (3.5-5.1); PROTEIN - SERUM 6.5 g/dL (6.4-8.2)
--- NOTE | 2019-03-04 09:00 | NUR ---
ALERT AND ORIENTED X3 AND DENIES ANY ABDOMINAL PAIN OR DISCOMFORT ON PALPATION. OBESE ABDOMEN WITH BS NOTED. RT. MIDLINE INTACT TO RUE WITH IVF INFUSING AT PRESCRIBED RATE. SITTING UP ON SOB. ENCOURAGED TO USE CALL LIGHT FOR ASSIST.
[2019-03-04 17:10] LABS: HEMATOCRIT 30.9 % (36.0-48.0); HEMOGLOBIN 10.4 g/dL (12-16)
[2019-03-05] VITALS: BP 173/71
[2019-03-05 04:00] VITALS: BP 150/56
[2019-03-05 07:04] LABS: EOSINOPHILS 6.3 % (0-7); HEMATOCRIT 28.5 % (36.0-48.0); HEMOGLOBIN 9.5 g/dL (12-16); IMMATURE GRANULOCYTES 0.3 % (0-5); LYMPHOCYTES 21.5 % (15-50); MCH 29.6 pg (26.0-34.0); MCHC 33.3 g/dL (31.0-37.0); MCV 88.8 fL (80.0-100.0); MEAN PLATELET VOLUME 9.5 fL (7.4-10.4); MONOCYTES 9.7 % (2-11); NEUTROPHILS 61.2 % (40-80); PLATELET COUNT 172 10x3/uL (130-400); RBC 3.21 10x6/uL (4.00-5.40); RDW 15.8 % (11.5-14.5); WBC 3.8 10x3/uL (4.8-10.8)
[2019-03-05 07:28] LABS: ALBUMIN 2.8 g/dL (3.4-5.0); ANION GAP 16.6 mmol/L (8-16); BILIRUBIN - TOTAL 0.6 mg/dL (0.2-1.3); CALCIUM 8.5 mg/dL (8.5-10.1); CREATININE - SERUM 1.9 mg/dL (0.6-1.3); POTASSIUM - SERUM 3.6 mmol/L (3.5-5.1); PROTEIN - SERUM 6.4 g/dL (6.4-8.2)
[2019-03-05 08:32] VITALS: BP 151/74
--- NOTE | 2019-03-05 10:26 | NUR ---
ALERT AND ORIENTED X3 WITH NO S/S OF ABNORMAL BLEEDING NOTED AT THIS TIME. IVF INFUSINGA T PRESCRIBED RATE TO RT. MIDLINE WITH NO S/S OF ERRYTHEMA OR INFILTRATION. ENCOURAGED TO USE CALL LIGHT FOR ASSIST.
[2019-03-05 13:28] VITALS: BP 168/90
[2019-03-05 16:56] VITALS: BP 169/67
[2019-03-05 17:29] LABS: HEMATOCRIT 31.7 % (36.0-48.0); HEMOGLOBIN 10.4 g/dL (12-16)
[2019-03-05 20:00] VITALS: BP 201/82
[2019-03-06] VITALS: BP 177/60
[2019-03-06 04:00] VITALS: BP 196/85
[2019-03-06 06:03] LABS: BASOPHILS 0.4 % (0-2); EOSINOPHILS 4.6 % (0-7); HEMATOCRIT 30.6 % (36.0-48.0); HEMOGLOBIN 10.1 g/dL (12-16); IMMATURE GRANULOCYTES 0.2 % (0-5); LYMPHOCYTES 13.5 % (15-50); MCH 29.3 pg (26.0-34.0); MCV 88.7 fL (80.0-100.0); MEAN PLATELET VOLUME 9.9 fL (7.4-10.4); MONOCYTES 10.4 % (2-11); NEUTROPHILS 70.9 % (40-80); PLATELET COUNT 206 10x3/uL (130-400); RBC 3.45 10x6/uL (4.00-5.40); RDW 15.7 % (11.5-14.5)
[2019-03-06 06:09] LABS: WBC 5.2 10x3/uL (4.8-10.8)
[2019-03-06 06:36] LABS: ALBUMIN 3.1 g/dL (3.4-5.0); ANION GAP 18.8 mmol/L (8-16); BILIRUBIN - TOTAL 0.75 mg/dL (0.2-1.3); CALCIUM 8.7 mg/dL (8.5-10.1); CARBON DIOXIDE 17.5 mmol/L (21.0-32.0); CREATININE - SERUM 1.7 mg/dL (0.6-1.3); POTASSIUM - SERUM 3.3 mmol/L (3.5-5.1); PROTEIN - SERUM 6.7 g/dL (6.4-8.2)
--- NOTE | 2019-03-06 07:20 | NUR ---
ALERT AND ORIENTED, SITTING UP IN CHAIR. UP AD DESTINEE. NO C/O PAIN. NO S/S OF ACUTE DISTRESS NOTED. ON ELECTROLYTE PROTOCOL, POTASSIUM 3.3. RIGHT UPPER ARM MIDLINE, NS INFUSING @ 125ML/HR. SITE PATENT WITHOUT REDNESS OR SWELLING. PT ACHS. ON TELEMETRY 115 ST. PT C/O URINARY FREQUENCY, OBTAINED URINE FOR TESTING. PT DENIES ANY NEEDS AT THIS TIME. CALL LIGHT IN REACH. WILL CONTINUE TO MONITOR.
[2019-03-06 08:41] VITALS: BP 194/98
[2019-03-06 09:21] LABS: APPEARANCE CLOUDY (CLEAR); BILIRUBIN NEGATIVE (NEGATIVE); COLOR YELLOW (YELLOW); GLUCOSE NEGATIVE (NEGATIVE); KETONE NEGATIVE (NEGATIVE); NITRITE NEGATIVE (NEGATIVE); PROTEIN 3+ mg/dL (NEGATIVE); UROBILINOGEN NORMAL (NORMAL)
[2019-03-06 09:22] LABS: BACTERIA MANY /hpf (NONE SEEN); MUCUS >1+ /lpf (NONE SEEN); RED CELLS - URINE >50 /hpf (0-5); WHITE CELLS - URINE >50 /hpf (0-5)
[2019-03-06 09:23] LABS: AMORPHOUS SEDIMENT >1+ /lpf (NONE SEEN)
--- NOTE | 2019-03-06 12:25 | NUR ---
PT BP 209/96, NOTIFIED ROBERTO VARGAS APRN. LATOYA GARCIA RN GAVE APRESSOLINE IV FOR BP. NO S/S OF ACUTE DISTRESS NOTED. CALL LIGHT IN REACH. WILL CONTINUE TO MONITOR.
[2019-03-06 14:01] VITALS: BP 209/96
[2019-03-06 17:15] VITALS: BP 201/86
--- NOTE | 2019-03-06 19:03 | NUR ---
ALERT AND ORIENTED. NO C/O PAIN. NO S/S OF ACUTE DISTRESS NOTED. MIDLINE TO RIGHT UPPER ARM LEAKING. PT DENIES ANY NEEDS. CALL LIGHT IN REACH. WILL CONTINUE TO MONITOR.
--- NOTE | 2019-03-06 19:40 | NUR ---
SITTING IN CHAIR WITH DAUGHTER AT BEDSIDE, A/O. NO SIGNS OF DISTRESS NOTED. MIDLINE LINE LEAKING IN THE RIGHT UPPER ARM WITH FLUID LEAKING ONTO BED. COMPLET BED CHANGE. VOICES NO PAIN OR OTHER NEEDS AT THIS TIME. WILL CONITINUE TO MONITOR.
[2019-03-06 20:00] VITALS: BP 215/94
[2019-03-07] VITALS: BP 159/62
[2019-03-07 04:00] VITALS: BP 169/61
--- NOTE | 2019-03-07 05:21 | NUR ---
MIDLINE DRESSING CHANGE. SITE IS FREE OF SWELLING AND REDNESS. CONTINUE WITH PLAN OF CARE.
[2019-03-07 06:57] LABS: BASOPHILS 0.4 % (0-2); EOSINOPHILS 0.7 % (0-7); HEMATOCRIT 28.6 % (36.0-48.0); HEMOGLOBIN 9.5 g/dL (12-16); IMMATURE GRANULOCYTES 0.4 % (0-5); LYMPHOCYTES 13.7 % (15-50); MCH 29.3 pg (26.0-34.0); MCHC 33.2 g/dL (31.0-37.0); MCV 88.3 fL (80.0-100.0); MEAN PLATELET VOLUME 9.7 fL (7.4-10.4); MONOCYTES 16.2 % (2-11); NEUTROPHILS 68.6 % (40-80); PLATELET COUNT 202 10x3/uL (130-400); RBC 3.24 10x6/uL (4.00-5.40); RDW 15.7 % (11.5-14.5); WBC 4.5 10x3/uL (4.8-10.8)
[2019-03-07 07:37] LABS: ALBUMIN 2.8 g/dL (3.4-5.0); ANION GAP 17.9 mmol/L (8-16); BILIRUBIN - TOTAL 0.78 mg/dL (0.2-1.3); CARBON DIOXIDE 17.3 mmol/L (21.0-32.0); CREATININE - SERUM 1.6 mg/dL (0.6-1.3); POTASSIUM - SERUM 3.2 mmol/L (3.5-5.1); PROTEIN - SERUM 6.1 g/dL (6.4-8.2)
[2019-03-07 09:33] VITALS: BP 184/77
--- NOTE | 2019-03-07 10:01 | NUR ---
Nutrition follow-up: Diet: ADA PO intake ~50% of meals Labs reviewed Wt: 271# RDN following.
[2019-03-07 11:29] VITALS: BP 173/75
[2019-03-07 14:38] VITALS: Ht 152.4 cm; Wt 123.4 kg
--- NOTE | 2019-03-07 15:02 | NUR ---
PT RESTING IN BED. NO SIGNS OF DISTRESS. IV TO RIGHT UPPER ARM MIDLINE PATENT. ON TELEMETRY 89 SR. HAS LAYNE PATENT NO KINKS. DENIES ANY FUTHER NEED AT THIS TIME. CALL LIGHT IN REACH. BED LOW POSITION. FAMILY AT BEDSIDE.
[2019-03-07 16:35] VITALS: BP 187/84
--- NOTE | 2019-03-07 19:15 | NUR ---
PT LAYING IN BED WITH DAUGHTER AT BEDSIDE. A/O X4 AND SHOWS NO SIGNS OF DISTRESS. RECEIVED IN REPORT THAT MIDLINE STILL LEAKS, SL AND DRESSING INTACT. LAYNE IN PLACE. BLOODY DISCHARGE WITH CLOTS NOTED IN LAYNE BAG AND TUBEING. DENIES PAIN OR OTHER NEEDS. CONTINUE WITH PLAN OF CARE.
[2019-03-07 20:00] VITALS: BP 187/69
[2019-03-08] VITALS: BP 155/60
[2019-03-08 04:00] VITALS: BP 193/55
[2019-03-08 04:43] LABS: BASOPHILS 0.3 % (0-2); EOSINOPHILS 1.6 % (0-7); HEMATOCRIT 32.7 % (36.0-48.0); IMMATURE GRANULOCYTES 0.3 % (0-5); LYMPHOCYTES 18.3 % (15-50); MCH 29.5 pg (26.0-34.0); MCHC 33.6 g/dL (31.0-37.0); MCV 87.7 fL (80.0-100.0); MEAN PLATELET VOLUME 9.8 fL (7.4-10.4); MONOCYTES 11.1 % (2-11); NEUTROPHILS 68.4 % (40-80); RBC 3.73 10x6/uL (4.00-5.40); RDW 15.8 % (11.5-14.5)
[2019-03-08 04:54] LABS: ANION GAP 17.6 mmol/L (8-16); CALCIUM 8.8 mg/dL (8.5-10.1); CARBON DIOXIDE 21.4 mmol/L (21.0-32.0); CREATININE - SERUM 1.3 mg/dL (0.6-1.3)
[2019-03-08 05:05] LABS: PLATELET COUNT 248 10x3/uL (130-400); WBC 6.4 10x3/uL (4.8-10.8)
--- NOTE | 2019-03-08 07:35 | NUR ---
RECIEVED REPORT. PATIENT IS RESTING QUIETLY AT THIS TIME. LAYNE BAG SHOWS RED TINGED URINE. PATIENT DENIES ANY NEEDS AT THIS TIME.
--- NOTE | 2019-03-08 08:44 | NUR ---
B/P OF 181/75 NOTED. TREATING WITH BLOOD PRESSURE MEDICATIONS ORDERED. PATIENT IS SITTING UP IN BED AND DENIES ANY SYMPTOMS OF DISCOMFORT AT THIS TIME. THERE IS A FISH ODOR IN THE ROOM. PATIENT HAS YEAST AROUND HER GROIN . MEDICATIONS APPLIED ORDERED. CALLING VASCULAR ACCESS NURSE AGAIN TODAY TO ASSESS THE MIDLINE IN HER RIGHT ARM. PATIENT AND TAIL PULLER REPORT THAT IT HAS BEEN LEAKING AND IS NOT USABLE. WILL HAVE VASCULAR NURSE ASSESS.
[2019-03-08 09:11] VITALS: BP 181/75
--- NOTE | 2019-03-08 09:49 | NUR ---
VASCULAR NURSE REMOVED THE MIDLINE THAT WAS LEAKING. PATIENT REPORTS THAT SHE THINKS SHE IS GOING HOME. WILL CALL AND ASK DR IF SHE NEEDS IV ACCESS.
[2019-03-08 12:47] VITALS: BP 174/76
[2019-03-08 17:01] VITALS: BP 162/72
--- NOTE | 2019-03-08 17:23 | NUR ---
PATIENT IS RESTING IN BED. FAMILY AT BEDSIDE. SHE DID NOT NEED INSULIN THIS TIME HER BLOOD SUGAR WAS 110. SHE IS STAYING HERE ANOTHER NIGHT AND HER ANTIBIOTICS HAVE BEEN CHANGED TO ORAL.
--- NOTE | 2019-03-08 17:25 | NUR ---
IS AWARE THAT PATIENT DOES NOT HAVE ANY IV ACCESS AND PEYTON SAID IT IS OK TO LEAVE THE IV OUT. PATIENT WILL BE DISCHARGED SOON.
--- NOTE | 2019-03-08 19:47 | NUR ---
PATIENT RESTING IN BED WITH NO NEEDS NOTED OR STATED.ALERT AND ORENTED ABLE TO VOICE NEEDS AND WANTS TO STAFF. WATER AND CALL LIGHT IN REACH , BED LOW, FAMILY AT BEDSIDE. F/C IN PLACE AND PATEN, UP AT DESTINEE. NO IV IN PLACE,
[2019-03-09] VITALS: BP 138/51
[2019-03-09 05:53] LABS: BASOPHILS 0.3 % (0-2); EOSINOPHILS 4.1 % (0-7); HEMATOCRIT 31.3 % (36.0-48.0); HEMOGLOBIN 10.5 g/dL (12-16); IMMATURE GRANULOCYTES 0.2 % (0-5); LYMPHOCYTES 19.4 % (15-50); MCH 29.6 pg (26.0-34.0); MCHC 33.5 g/dL (31.0-37.0); MCV 88.2 fL (80.0-100.0); MEAN PLATELET VOLUME 9.9 fL (7.4-10.4); MONOCYTES 10.9 % (2-11); NEUTROPHILS 65.1 % (40-80); PLATELET COUNT 271 10x3/uL (130-400); RBC 3.55 10x6/uL (4.00-5.40); RDW 15.6 % (11.5-14.5); WBC 5.9 10x3/uL (4.8-10.8)
[2019-03-09 06:06] LABS: ANION GAP 14.6 mmol/L (8-16); CALCIUM 8.6 mg/dL (8.5-10.1); CARBON DIOXIDE 22.9 mmol/L (21.0-32.0); CREATININE - SERUM 1.3 mg/dL (0.6-1.3); POTASSIUM - SERUM 3.5 mmol/L (3.5-5.1)
[2019-03-09 09:22] VITALS: BP 210/83
--- NOTE | 2019-03-09 11:45 | NUR ---
PT RESTING IN BED. NO SIGNS OF DISTRESS. NO IV AT THIS TIME. ON TELEMETRY 73 SR. HAS LAYNE NO KINKS PATENT. DENIES ANY FURTHER NEED AT THIS TIME. CALL LIGHT IN REACH. BED LOW POSITION. FAMILY AT BEDSIDE.
[2019-03-09 13:10] VITALS: BP 184/74
[2019-03-09 18:10] VITALS: BP 185/70
--- NOTE | 2019-03-09 19:15 | NUR ---
PATIENT ALERT AND ORIENTED WITH DAUGHTER AT BEDSIDE. PATIENT HAS NO IV ACCESS AT THIS TIME. BRUISING NOTED TO THE LEFT UPPER ARM. ALSO RIGHT UPPER ARM HAS SMALL BRUISES SCATTERED OVER FOREARM. PATIENT HAS LAYNE CATHETER. WEARING TELEMETRY. UP AD DESTINEE TO THE BATHROOM. STATES "DOCTOR ACTS LIKE I NEED REHAB BUT I CAN WALK AND I GET UP EVERYDAY I JUST DONT HAVE A REASON TO WITH THIS THING IN SIDE OF ME." PATIENT IRRITABLE WHEN TALKING ABOUT HOSPITAL STAY. PROVIDED EDUCATION ON WELLNESS AND PATIENT VERBALIZES UNDERSTANDING. REDDENDED RASH LIKE AREA UNDER ABDOMINAL FOLDS AND GROIN. ROOM AIR. DENIES PAIN AT THIS TIME. HAS CALL LIGHT IN HAND. VERBALIZES HOW TO USE APPROPRIATELY. CPOC.
[2019-03-09 20:42] VITALS: BP 192/73
[2019-03-10 00:39] VITALS: BP 140/44
--- NOTE | 2019-03-10 02:53 | NUR ---
I have reviewed this patient and I concur with the Shift Assessment completed by the Licensed Practical Nurse today this shift.
[2019-03-10 04:40] VITALS: BP 157/67
[2019-03-10 05:11] LABS: BASOPHILS 0.4 % (0-2); HEMATOCRIT 32.3 % (36.0-48.0); HEMOGLOBIN 10.7 g/dL (12-16); IMMATURE GRANULOCYTES 0.2 % (0-5); LYMPHOCYTES 19.5 % (15-50); MCH 29.2 pg (26.0-34.0); MCHC 33.1 g/dL (31.0-37.0); MCV 88.3 fL (80.0-100.0); MEAN PLATELET VOLUME 9.5 fL (7.4-10.4); NEUTROPHILS 62.9 % (40-80); PLATELET COUNT 254 10x3/uL (130-400); RBC 3.66 10x6/uL (4.00-5.40); RDW 15.2 % (11.5-14.5); WBC 5.3 10x3/uL (4.8-10.8)
[2019-03-10 05:35] LABS: CALCIUM 8.3 mg/dL (8.5-10.1); CARBON DIOXIDE 26.6 mmol/L (21.0-32.0); CREATININE - SERUM 1.2 mg/dL (0.6-1.3); POTASSIUM - SERUM 3.6 mmol/L (3.5-5.1)
[2019-03-10 08:14] VITALS: BP 137/71
--- NOTE | 2019-03-10 12:35 | NUR ---
Nutrition follow-up: Diet: ADA consistent CHO PO intake has improved; 100% of most meals now Labs reviewed +BM; blood in stool Wt: 271# RDN following.
[2019-03-10 13:37] VITALS: BP 195/85
[2019-03-10] MEDS ORDERED: LEVOFLOXACIN500 MG PO (16:17)
[2019-03-10] MEDS ORDERED: FLOMAX0.4 MG PO (16:17)
[2019-03-10] MEDS ORDERED: METOPROLOL TART50 MG PO (16:18)
[2019-03-10 16:41] VITALS: BP 135/85
--- NOTE | 2019-03-10 18:09 | NUR ---
PATIENT RECIEVED DC INSTRUCTIONS. VERBALIZED UNDERSTANDING. NO QUESTIONS AT THIS TIME. DAUGHTER AT SIDE. EXPLAINED AND SHOWED PATIENT AND DAUGHTER HOW TO CONNECT CATHETER TO LEG BAG. EXPLAINED TO USE THE DRAINAGE BAG AT NIGHT OR WHEN JUST SITTING AT HOME TO GRAVITY. NO QUESTIONS A TTHIS TIME. EXPLAINED TO KEEP CATHETER AREA CLEAN. VERBALIZED UNDERSTANDING. ALSO EXPLAINED TO CONTINUE USING NYSTATIN POWDER UNDER BREASTS AND ABDOMEN. VERBALIZED UNDERSTANDING. CALLED CAB FOR PATIENT. AWAITING WC FOR DC. CALL LIGHT WITHIN REACH.
== END 2019-03-10 18:29 | disposition home or self-care (01) | DRG 378 ==
LOC: D.ER 08:54 → D.MS 10:17
PROVIDERS: Emergency Medicine; Family Medicine; Internal Medicine Gastroenterology; ADMIT Internal Medicine Nephrology; ATTEND Internal Medicine Nephrology
PROC: 0DJ08ZZ Inspection of Upper Intestinal Tract, Via Natural or Artificial Opening Endoscopic (ICD-10-PCS; principal; 2019-02-27 10:07)
PROC: 05HD33Z Insertion of Infusion Device into Right Cephalic Vein, Percutaneous Approach (ICD-10-PCS; 2019-03-03)
DX: K92.2 Gastrointestinal hemorrhage, unspecified (principal); D62 Acute posthemorrhagic anemia; E87.1 Hypo-osmolality and hyponatremia; N17.9 Acute kidney failure, unspecified; K91.2 Postsurgical malabsorption, not elsewhere classified; N39.0 Urinary tract infection, site not specified; N13.30 Unspecified hydronephrosis; K29.70 Gastritis, unspecified, without bleeding; K20.9 Esophagitis, unspecified; E11.9 Type 2 diabetes mellitus without complications; I10 Essential (primary) hypertension; N32.0 Bladder-neck obstruction; R31.9 Hematuria, unspecified; R33.9 Retention of urine, unspecified

== ENCOUNTER → 2019-03-24 12:12 | Outpatient (CLI) | payer MEDICAID ==
[2019-03-23 16:27] VITALS: BMI 53.2
[~2019-03-24 12:12] MED LIST changes: +FLOMAX0.4 MG PO; +LEVOFLOXACIN500 MG PO; +METOPROLOL TART50 MG PO
[2019-03-24 12:44] LABS: BASOPHILS 0.2 % (0-2); EOSINOPHILS 3.9 % (0-7); HEMATOCRIT 34.7 % (36.0-48.0); HEMOGLOBIN 12.1 g/dL (12-16); IMMATURE GRANULOCYTES 0.2 % (0-5); LYMPHOCYTES 17.3 % (15-50); MCH 29.7 pg (26.0-34.0); MCHC 34.9 g/dL (31.0-37.0); MEAN PLATELET VOLUME 9.9 fL (7.4-10.4); MONOCYTES 8.2 % (2-11); NEUTROPHILS 70.2 % (40-80); PLATELET COUNT 231 10x3/uL (130-400); RBC 4.08 10x6/uL (4.00-5.40); RDW 13.8 % (11.5-14.5); WBC 8.7 10x3/uL (4.8-10.8)
[2019-03-24 14:13] LABS: FERRITIN 522 ng/mL (3-244)
== END | disposition home or self-care (01) ==
LOC: D.LAB 12:12
PROVIDERS: ATTEND Internal Medicine Gastroenterology
DX: D64.9 Anemia, unspecified (principal); Z86.010 Personal history of colon polyps

== ENCOUNTER 2020-02-05 07:49 | Inpatient (IN) | payer MEDICAID ==
[~2020-02-05] VITALS: Ht 152.4 cm; Wt 123.4 kg
[2020-02-05] VITALS (7 sets, daily range): BP systolic 127–156; BP diastolic 45–84; BMI 53.2
[2020-02-05] MEDS ORDERED: ALDACTONE25 MG PO (07:58)
[2020-02-05 08:32] LABS: HEMATOCRIT 33.5 % (36.0-48.0); HEMOGLOBIN 11.5 g/dL (12-16); LYMPHOCYTES 17.5 % (15-50); MCH 29.8 pg (26.0-34.0); MCHC 34.3 g/dL (31.0-37.0); MCV 86.8 fL (80.0-100.0); NEUTROPHILS 73.7 % (40-80); RBC 3.86 10x6/uL (4.00-5.40); RDW 12.8 % (11.5-14.5); WBC 9.1 10x3/uL (4.8-10.8)
[2020-02-05 08:43] LABS: PLATELET COUNT 309 10x3/uL (130-400)
[2020-02-05 08:50] LABS: ALBUMIN 2.9 g/dL (3.4-5.0); ANION GAP 12.8 mmol/L (8-16); BILIRUBIN - TOTAL 0.47 mg/dL (0.2-1.3); C-REACTIVE PROTEIN 6.3 mg/dL (0.0-0.9); CALCIUM 9.3 mg/dL (8.5-10.1); CREATININE - SERUM 1.3 mg/dL (0.6-1.3); POTASSIUM - SERUM 3.8 mmol/L (3.5-5.1); PROTEIN - SERUM 7.9 g/dL (6.4-8.2)
--- NOTE | 2020-02-05 08:55 | NUR ---
CRITICAL LAB GLUCOSE GIVEN TO DR AND NURSE
[2020-02-05 10:55] LABS: ERYTHROCYTE SEDIMENTATION RATE 84 mm/hr (0-30)
--- NOTE | 2020-02-05 12:29 | NUR ---
PROVIDER, GILES WALTERS APRN AWARE OF PTS BS OF 425MG/DL.
--- NOTE | 2020-02-05 19:30 | NUR ---
PT SITTING UP IN BED WITHUOT DISTRESS, AOX4. IV RIGHT HAND SL. DAUGHTER AT BEDSIDE. DENIES PAIN OR NEEDS AT THIS TIME. CL IN REACH, WILL CTM
[2020-02-06] VITALS: BP 143/56
[2020-02-06 04:00] VITALS: BP 152/63
[2020-02-06 05:17] LABS: HEMATOCRIT 31.8 % (36.0-48.0); HEMOGLOBIN 10.5 g/dL (12-16); LYMPHOCYTES 15.4 % (15-50); MCH 29.5 pg (26.0-34.0); MEAN PLATELET VOLUME 8.9 fL (7.4-10.4); NEUTROPHILS 74.5 % (40-80); PLATELET COUNT 276 10x3/uL (130-400); RBC 3.56 10x6/uL (4.00-5.40); RDW 13.1 % (11.5-14.5); WBC 8.6 10x3/uL (4.8-10.8)
[2020-02-06 05:25] LABS: MCV 89.3 fL (80.0-100.0)
[2020-02-06 06:29] LABS: ALBUMIN 2.5 g/dL (3.4-5.0); ANION GAP 7.1 mmol/L (8-16); BILIRUBIN - TOTAL 0.45 mg/dL (0.2-1.3); CARBON DIOXIDE 29.8 mmol/L (21.0-32.0); CREATININE - SERUM 1.3 mg/dL (0.6-1.3); MAGNESIUM - SERUM 2.1 mg/dL (1.8-2.4); POTASSIUM - SERUM 3.9 mmol/L (3.5-5.1); PROTEIN - SERUM 7.2 g/dL (6.4-8.2)
--- NOTE | 2020-02-06 08:00 | NUR ---
PATIENT SITTING UP IN BED WITH NO COMPLAINTS OR SIGNS OF DISTRESS. IV INTACT. CALL LIGHT WITHIN REACH.
[2020-02-06 09:35] VITALS: BP 120/51
[2020-02-06 13:17] VITALS: BP 145/66
[2020-02-06 14:26] VITALS: Ht 152.4 cm; Wt 123.4 kg
--- NOTE | 2020-02-06 17:23 | NUR ---
PATIENT SITTING UP IN BED WITH NO COMPLAINTS OR SIGNS OF DISTRESS. IV INTACT. IV ANTIBIOTIC INFUSING. FAMILY AT BEDSIDE. CALL LIGHT WITHIN REACH.
[2020-02-06 17:47] VITALS: BP 146/58
--- NOTE | 2020-02-06 19:30 | NUR ---
FAMILY SITTING UP IN BED WITHOUT DISTRESS, AOX4. FAMILY AT BEDSIDE. IV RIGHT HAND INFUSING NS @ 75. DRESSING TO RIGHT FOOT CDI. PT DENIES PAIN OR NEEDS. CL IN REACH, WILL CTM
[2020-02-06 20:00] VITALS: BP 118/61
[2020-02-07] VITALS: BP 145/63
[2020-02-07 01:25] LABS: BILIRUBIN NEGATIVE (NEGATIVE); GLUCOSE 500 mg/dL (NEGATIVE); KETONE NEGATIVE (NEGATIVE); NITRITE NEGATIVE (NEGATIVE); SPECIFIC GRAVITY 1.015 (1.005-1.020); UROBILINOGEN NORMAL (NORMAL)
[2020-02-07 01:29] LABS: BACTERIA FEW /hpf (NEGATIVE); EPITHELIAL CELLS 0-5 /hpf (0-5); RED CELLS - URINE 0-5 /hpf (0-5)
[2020-02-07 04:00] VITALS: BP 140/63
[2020-02-07 06:09] LABS: ALBUMIN 2.5 g/dL (3.4-5.0); ANION GAP 10.8 mmol/L (8-16); BILIRUBIN - TOTAL 0.3 mg/dL (0.2-1.3); CALCIUM 9.2 mg/dL (8.5-10.1); CARBON DIOXIDE 27.1 mmol/L (21.0-32.0); CREATININE - SERUM 1.1 mg/dL (0.6-1.3); PHOSPHOROUS 3.7 mg/dL (2.5-4.9); POTASSIUM - SERUM 3.9 mmol/L (3.5-5.1); PROTEIN - SERUM 7.3 g/dL (6.4-8.2)
[2020-02-07 06:22] LABS: HEMATOCRIT 32.2 % (36.0-48.0); HEMOGLOBIN 10.5 g/dL (12-16); LYMPHOCYTES 23.9 % (15-50); MCH 29.9 pg (26.0-34.0); MCHC 32.6 g/dL (31.0-37.0); MCV 91.7 fL (80.0-100.0); MEAN PLATELET VOLUME 9.4 fL (7.4-10.4); NEUTROPHILS 66.2 % (40-80); PLATELET COUNT 297 10x3/uL (130-400); RBC 3.51 10x6/uL (4.00-5.40); RDW 13.3 % (11.5-14.5); WBC 7.3 10x3/uL (4.8-10.8)
--- NOTE | 2020-02-07 08:00 | NUR ---
PATIENT IN BED WITH IV INTACT. NO COMPLAINTS OR SIGNS OF DISTRESS. FAMILY AT BEDSIDE. CALL LIGHT WITHIN REACH.
[2020-02-07 09:07] VITALS: BP 145/64
[2020-02-07 12:50] VITALS: BP 146/55
[2020-02-07 16:45] VITALS: BP 156/57
[2020-02-07 20:00] VITALS: BP 143/60
[2020-02-08] VITALS: BP 150/69
--- NOTE | 2020-02-08 02:00 | NUR ---
PT CALLED ME IN ROOM. SAID SHE WAS BLEEDING AND SHE COULDNT SEE FROM WHERE. I LOOKED AT LOWER ABD LT SIDE. MULTI WHAT LOOKS LIKE BLISTERS THAT HAVE POPED. TWO WAS ACTIVLEY BLEEDING. DRESSING APPLIED 4X4 AND TAPE. WILL CONTINUE TO MONITOR CLOSELY.
--- NOTE | 2020-02-08 02:59 | NUR ---
IV INFULTRATED. ATTEMPTING TO RESTART NEW IV. WILL FALLOW UP.
[2020-02-08 04:00] VITALS: BP 169/67
--- NOTE | 2020-02-08 05:32 | NUR ---
I have reviewed this patient and I concur with the Shift Assessment completed by the Licensed Practical Nurse today this shift.
[2020-02-08 06:52] LABS: ALBUMIN 2.5 g/dL (3.4-5.0); ANION GAP 11.8 mmol/L (8-16); BILIRUBIN - TOTAL 0.27 mg/dL (0.2-1.3); CALCIUM 8.7 mg/dL (8.5-10.1); CARBON DIOXIDE 26.2 mmol/L (21.0-32.0); CREATININE - SERUM 1.1 mg/dL (0.6-1.3); MAGNESIUM - SERUM 1.7 mg/dL (1.8-2.4); PROTEIN - SERUM 6.4 g/dL (6.4-8.2)
[2020-02-08 07:39] LABS: HEMATOCRIT 32.5 % (36.0-48.0); HEMOGLOBIN 10.4 g/dL (12-16); LYMPHOCYTES 29.6 % (15-50); MCH 29.8 pg (26.0-34.0); MCV 93.1 fL (80.0-100.0); MEAN PLATELET VOLUME 9.3 fL (7.4-10.4); NEUTROPHILS 59.3 % (40-80); PLATELET COUNT 284 10x3/uL (130-400); RBC 3.49 10x6/uL (4.00-5.40); RDW 13.1 % (11.5-14.5); WBC 5.8 10x3/uL (4.8-10.8)
--- NOTE | 2020-02-08 09:00 | NUR ---
ALERT AND ORIENTED X4. DRESSINGS DRY AND INTACT TO BILATERAL FEET WITH CAP REFILL <3 SEC AND WARM TO TOUCH. DENIES ANY PAIN OR DISCOMFORT AT THIS TIME. DRESSIGN INTACT TO PANNUS AREA OF ABDOMEN. IV TO LEFT CHEST WITH IVF INFUSING AT PRESCRIBED RATE WITH NO S/S OF INFECTION/INFILTRATION
--- NOTE | 2020-02-08 09:48 | NUR ---
Nutrition education for DMT2: Pt reports gastric bypass surgery ~20 years ago. Pt states she lost ~100#; however, over the years pt has slowly gained most of the weight back. Pt reports having DM diet education numberous times over the years. Pt states she does not eat macaroni and cheese anymore. Pt drinks mostly water. Pt states she has been eating a lot of potatoes recently. Pt states no sugary foods at all. Pt says her last A1c was 8% at Dr. Rodriguez's office. Pt now with A1c of 12.2%. Reviewed CHO containing foods and the affect CHO have on glucose. Stressed the importance of not skipping meals to keep glucose under control. Advised pt to closely monitor portion sizes of CHO foods and eat no more than 2-3 CHO choices at meals. Pt advised to eliminate all juice and most fruit from diet until glucose under better control. Reviewed sample menus. Reviewed portion sizes of common CHO foods. Pt with fair understanding of information discussed. Provided pt with printed diet information and RDN name and phone number. RDN will be available if needed. Thank you for the consult.
[2020-02-08 10:31] VITALS: BP 130/76
[2020-02-08 13:20] VITALS: BP 158/58
[2020-02-08 17:38] VITALS: BP 166/50
--- NOTE | 2020-02-08 18:21 | NUR ---
DRESSING CHANGED TO BLE WIT BETADINE DRESSING APPLIED AND SECURED WITH KERLIX AND TAPE.PEDAL PULSES NOTED AND DENIES ANY PAIN OR DISCOMFORT AT THIS TIME.
[2020-02-08 20:00] VITALS: BP 155/61
--- NOTE | 2020-02-09 00:17 | NUR ---
PT RESTING IN BED. EYES CLOSED. NO SIGNS OF DISTRESS. BREATHING EVEN AND UNLABORED. IV SITE LT CHEST DRESSING CLEAN DRY AND INTACT. NO SIGNS OF INFECTION OR INFULTRATION. LUNG SOUNDS CLEAR. BOWEL SOUNDS ACTIVE. DRESSING LT LOWER ABD CLEAN DRY AND INTACT. BILATERAL FEET DRESSINGS CLEAN DRY AND INTACT. WILL CONTINUE PLAN OF CARE. CALL LIGHT IN REACH. BED LOWERED AND LOCKED. BED RAILS UPX1.
--- NOTE | 2020-02-09 03:56 | NUR ---
I have reviewed this patient and I concur with the Shift Assessment completed by the Licensed Practical Nurse today this shift.
[2020-02-09 05:37] LABS: HEMATOCRIT 30.8 % (36.0-48.0); HEMOGLOBIN 9.9 g/dL (12-16); LYMPHOCYTES 27.7 % (15-50); MCH 29.8 pg (26.0-34.0); MCHC 32.1 g/dL (31.0-37.0); MCV 92.8 fL (80.0-100.0); NEUTROPHILS 59.6 % (40-80); PLATELET COUNT 274 10x3/uL (130-400); RBC 3.32 10x6/uL (4.00-5.40); WBC 5.2 10x3/uL (4.8-10.8)
[2020-02-09 05:47] LABS: ALBUMIN 2.3 g/dL (3.4-5.0); ANION GAP 11.5 mmol/L (8-16); BILIRUBIN - TOTAL 0.3 mg/dL (0.2-1.3); CALCIUM 8.5 mg/dL (8.5-10.1); CARBON DIOXIDE 25.4 mmol/L (21.0-32.0); MAGNESIUM - SERUM 1.7 mg/dL (1.8-2.4); PHOSPHOROUS 3.9 mg/dL (2.5-4.9); POTASSIUM - SERUM 3.9 mmol/L (3.5-5.1); PROTEIN - SERUM 6.7 g/dL (6.4-8.2)
[2020-02-09] MEDS ORDERED: AUGMENTIN 875-11 TAB PO (07:59)
[2020-02-09] MEDS ORDERED: VIBRAMYCIN 100100 MG PO (07:59)
[2020-02-09] MEDS ORDERED: LANTUS INS100 UNITS/ SC (08:00)
[2020-02-09] MEDS ORDERED: MUPIROCIN22 GM TOPICAL (08:02)
--- NOTE | 2020-02-09 09:00 | NUR ---
DRESSIGN CHANGED TO BLE WITH DIABETIC EDUCATION PROVIDED TO PATIENT AND FAMILY REGAURDING DIETARY RESTRICTIONS AND DRESSING CHANGES AND VERBALIZED UNDERSTANDING. NO S/S OF INFECTION NOTED AT WOUND SITES. DENIES ANY PAIN OR DISCOMFORT AT THIS TIME WITH NO PERIPHERAL EDEMA AND CAP REFIL < 3 SEC. ENCOURAGED TO USE CALL LIGHT FOR ASSSIT.
[2020-02-09 09:47] VITALS: BP 163/50
[2020-02-09] MEDS ORDERED: HUMULIN R100 UNIT/1 SC (10:17)
--- NOTE | 2020-02-09 11:02 | MORECARE ---
CASE MANAGEMENT DISCHARGE SUMMARY PATIENT: ALISTAIR CLEANING UNIT: [id number] ADM DATE: 02/05/20 AGE: 59 : 58 SEX: F ROOM/BED: D.2214 AUTHOR: ORQUIDEA LOPEZ PHYSICIAN: REFERRING PHYSICIAN: RAGHAVENDRA PHILLIPS DO DATE OF SERVICE: 02/09/20 Discharge Plan Patient Name: ALISTAIR CLEANING [facility] : 1960 Planned Disposition: Home Anticipated Discharge Date: Discharge Date: Expected LOS: Initial Reviewer: [email or web address] Initial Review Date: 02/05/2020 Generated: 02/09/20 12:02 pm DCPIA - Discharge Planning Initial Assessment Updated by [email or web address]: Yanet López on 02/09/20 10:57 am * Is the patient Alert and Oriented? Yes * How many steps to enter\exit or inside your home? 4/5 * PCP [facility] BUT WANTS TO MOVE TO [facility] * Pharmacy [facility] * Preadmission Environment Home with Family * ADLs Independent * Equipment Glucometer Shower Chair * List name and contact numbers for known caregivers / representatives who currently or will assist patient after discharge: GEETA ( DAUGHTER) [phone] BETHANY (SPOUSE) [phone] * Verbal permission to speak to the caregivers and representatives has been obtained from the patient. Yes * Additional services required to return to the preadmission environment? No * Can the patient safely return to the preadmission environment? Yes * Has this patient been hospitalized within the prior 30 days at any hospital? No Patient Name: ALISTAIR CLEANING Page [id number] at 1102 All edits/amendments must be made on the electronic document DICTATION DATE: 02/09/20 110 SOUND EFFECTS SUPERVISOR: RAUL 02/09/20 1102 RPT#: [id number] DC DATE: STATUS: ADM IN [facility] [address] [place] [address] END OF REPORT
--- NOTE | 2020-02-09 12:21 | MORECARE ---
CASE MANAGEMENT DISCHARGE SUMMARY PATIENT: ALISTAIR CLEANING UNIT: [id number] ADM DATE: 02/05/20 AGE: 59 : 58 SEX: F ROOM/BED: D.2214 AUTHOR: JESSICA,DOC PHYSICIAN: REFERRING PHYSICIAN: RAGHAVENDRA PHILLIPS DO DATE OF SERVICE: 02/09/20 Discharge Plan Patient Name: ALISTAIR CLEANING Facility: [facility]:[place] : 1960 Planned Disposition: Home Anticipated Discharge Date: Discharge Date: Expected LOS: Initial Reviewer: [email or web address] Initial Review Date: 02/05/2020 Generated: 02/09/20 1:21 pm Comments DCP- Discharge Planning Updated by [email or web address]: Yanet López on 02/09/20 11:[address] Patient Name: ALISTAIR CLEANING Admission Status: ER Accout number: [id number] Admission Date: 02-05-2020 : 1960 Admission Diagnosis:TYPE 2 DIABETES MELLITUS WITH FOOT ULCER Attending: RAGHAVENDRA PHILLIPS Current LOS: 4 Anticipated DC Date: Planned Disposition: Home Primary Insurance: MEDICAID [place] Discharge Planning Comments: CM met with patient to complete initial dc planning assessment. CM educated patient on the CM role and verbal consent given by patient to complete assessment. Patient lives at home her spouse and adult children where she is independent with her care. At discharge patient plans to return home and feels this is a safe discharge. CM discussed availability of home health, rehab services, and medical equipment. She has a glucometer and shower chair. She did not want home health and she stated that her daughter Geeta will be doing her dressing changes. Patient denied known discharge needs at this time. CM will continue to follow and will assist as needed with dc plans/needs. Photographic Reproduction Technician: Yanet López DCPIA - Discharge Planning Initial Assessment Updated by [email or web address]: Yanet López on 02/09/20 10:57 am * Is the patient Alert and Oriented? Yes * How many steps to enter\exit or inside your home? 4/5 * PCP [facility] BUT WANTS TO MOVE TO [facility] * Pharmacy [facility] * Preadmission Environment Home with Family * ADLs Independent * Equipment Glucometer Shower Chair * List name and contact numbers for known caregivers / representatives who currently or will assist patient after discharge: GEETA ( DAUGHTER) [phone] BETHANY (SPOUSE) [phone] * Verbal permission to speak to the caregivers and representatives has been obtained from the patient. Yes * Additional services required to return to the preadmission environment? No * Can the patient safely return to the preadmission environment? Yes * Has this patient been hospitalized within the prior 30 days at any hospital? No Last DP export: 02/09/20 10:02 a Patient Name: ALISTAIR CLEAINNG Page 07137 at 1221 All edits/amendments must be made on the electronic document DICTATION DATE: 02/09/20 122 AUDIO SPECIALIST: RAUL 02/09/20 1221 RPT#: [id number] DC DATE: STATUS: ADM IN [facility] [address] [place] [address] END OF REPORT
[2020-02-09 13:13] VITALS: BP 184/85
--- NOTE | 2020-02-09 14:43 | NUR ---
IV DISCONTINUED AND VERBALIZED UNDERSTANDING OF DISCHARGE INSTRUCTIONS. STABLE AT TIME OF DEPARTURE.
--- NOTE | 2020-02-09 16:55 | MORECARE ---
CASE MANAGEMENT DISCHARGE SUMMARY PATIENT: ALISTAIR CLEANING UNIT: [id number] ADM DATE: 02/05/20 AGE: 59 : 58 SEX: F ROOM/BED: D.2214 AUTHOR: JESSICA,DOC PHYSICIAN: REFERRING PHYSICIAN: RAGHAVENDRA PHILLIPS DO DATE OF SERVICE: 02/09/20 Discharge Plan Patient Name: ALISTAIR CLEANING Facility: [facility]:[place] : 1960 Planned Disposition: Home Anticipated Discharge Date: Discharge Date: 02/09/2020 Expected LOS: Initial Reviewer: [email or web address] Initial Review Date: 02/05/2020 Generated: 02/09/20 5:55 pm Comments DCP- Discharge Planning Updated by [email or web address]: Yanet López on 02/09/20 11:[address] Patient Name: ALISTAIR CLEANING Admission Status: ER Accout number: [id number] Admission Date: 02-05-2020 : 1960 Admission Diagnosis:TYPE 2 DIABETES MELLITUS WITH FOOT ULCER Attending: RAGHAVENDRA PHILLIPS Current LOS: 4 Anticipated DC Date: Planned Disposition: Home Primary Insurance: MEDICAID [place] Discharge Planning Comments: CM met with patient to complete initial dc planning assessment. CM educated patient on the CM role and verbal consent given by patient to complete assessment. Patient lives at home her spouse and adult children where she is independent with her care. At discharge patient plans to return home and feels this is a safe discharge. CM discussed availability of home health, rehab services, and medical equipment. She has a glucometer and shower chair. She did not want home health and she stated that her daughter Geeta will be doing her dressing changes. Patient denied known discharge needs at this time. CM will continue to follow and will assist as needed with dc plans/needs. Plant Chief: Yanet López DCPIA - Discharge Planning Initial Assessment Updated by [email or web address]: Yanet López on 02/09/20 10:57 am * Is the patient Alert and Oriented? Yes * How many steps to enter\exit or inside your home? 4/5 * PCP [facility] BUT WANTS TO MOVE TO [facility] * Pharmacy [facility] * Preadmission Environment Home with Family * ADLs Independent * Equipment Glucometer Shower Chair * List name and contact numbers for known caregivers / representatives who currently or will assist patient after discharge: GEETA ( DAUGHTER) [phone] BETHANY (SPOUSE) [phone] * Verbal permission to speak to the caregivers and representatives has been obtained from the patient. Yes * Additional services required to return to the preadmission environment? No * Can the patient safely return to the preadmission environment? Yes * Has this patient been hospitalized within the prior 30 days at any hospital? No Last DP export: 02/09/20 11:21 a Patient Name: ALISTAIR CLEANING Page [id number] at 1655 All edits/amendments must be made on the electronic document DICTATION DATE: 02/09/201654 CHILDREN'S NURSERY ASSISTANT: RAUL 02/09/201654 RPT#: [id number] DC DATE:02/09/20 STATUS: DIS IN [facility] [address] [place] [address] END OF REPORT
== END 2020-02-09 14:40 | disposition home or self-care (01) | DRG 623 ==
LOC: D.ER 07:49 → D.MS 09:31
PROVIDERS: Family Medicine; ADMIT Family Medicine; ATTEND Family Medicine
PROC: 0JBQ0ZZ Excision of Right Foot Subcutaneous Tissue and Fascia, Open Approach (ICD-10-PCS; principal; 2020-02-06)
DX: E11.621 Type 2 diabetes mellitus with foot ulcer (principal); E87.1 Hypo-osmolality and hyponatremia; E11.65 Type 2 diabetes mellitus with hyperglycemia; I10 Essential (primary) hypertension; J45.909 Unspecified asthma, uncomplicated; D64.9 Anemia, unspecified; N17.9 Acute kidney failure, unspecified

== ENCOUNTER 2020-03-26 11:53 | Emergency (ER) | payer MEDICAID ==
[~2020-03-26] VITALS: Ht 152.4 cm; Wt 121.4 kg
[~2020-03-26 11:53] MED LIST changes: +ALDACTONE25 MG PO; +AUGMENTIN 875-11 TAB PO; +HUMULIN R100 UNIT/1 SC; +LANTUS INS100 UNITS/ SC; +MUPIROCIN22 GM TOPICAL; +VIBRAMYCIN 100100 MG PO
[2020-03-26 12:05] VITALS: Ht 152.4 cm; Wt 121.4 kg
[2020-03-26 13:08] LABS: BASOPHILS 0.3 % (0-2); EOSINOPHILS 0.5 % (0-7); HEMATOCRIT 34.9 % (36.0-48.0); HEMOGLOBIN 11.4 g/dL (12-16); IMMATURE GRANULOCYTES 0.8 % (0-5); LYMPHOCYTES 11.5 % (15-50); MCH 30.4 pg (26.0-34.0); MCHC 32.7 g/dL (31.0-37.0); MCV 93.1 fL (80.0-100.0); MEAN PLATELET VOLUME 10.6 fL (7.4-10.4); MONOCYTES 8.9 % (2-11); RBC 3.75 10x6/uL (4.00-5.40); RDW 13.3 % (11.5-14.5); WBC 9.4 10x3/uL (4.8-10.8)
[2020-03-26 13:14] LABS: PLATELET COUNT 186 10x3/uL (130-400)
[2020-03-26 13:18] LABS: ANION GAP 18.2 mmol/L (8-16); CALCIUM 8.8 mg/dL (8.5-10.1); CREATININE - SERUM 1.1 mg/dL (0.6-1.3); POTASSIUM - SERUM 5.2 mmol/L (3.5-5.1)
[2020-03-26 13:24] LABS: ALBUMIN 2.8 g/dL (3.4-5.0); BILIRUBIN - TOTAL 0.58 mg/dL (0.2-1.3); PROTEIN - SERUM 7.6 g/dL (6.4-8.2)
[2020-03-26] MEDS ORDERED: CLEOCIN HCL300 MG PO (16:05)
[2020-03-26 16:29] VITALS: BP 130/60
== END 2020-03-26 16:29 | disposition home or self-care (01) ==
LOC: D.ER 11:53
PROVIDERS: Family Medicine
DX: E11.621 Type 2 diabetes mellitus with foot ulcer (principal); L03.116 Cellulitis of left lower limb; R74.8 Abnormal levels of other serum enzymes; E78.5 Hyperlipidemia, unspecified; E87.5 Hyperkalemia; E87.1 Hypo-osmolality and hyponatremia; M86.9 Osteomyelitis, unspecified; I10 Essential (primary) hypertension

== ENCOUNTER 2020-04-04 11:05 | Day surgery (SDC) | payer MEDICAID ==
[~2020-04-04] VITALS: Ht 152.4 cm; Wt 121.1 kg
[~2020-04-04 11:05] MED LIST changes: +CLEOCIN HCL300 MG PO; +INSULIN ASPART PROTAMINE SQ; +INSULIN ASPART SQ
[2020-04-04 11:38] LABS: BASOPHILS 0.5 % (0-2); EOSINOPHILS 2.3 % (0-7); HEMATOCRIT 32.9 % (36.0-48.0); HEMOGLOBIN 11.1 g/dL (12-16); IMMATURE GRANULOCYTES 0.7 % (0-5); LYMPHOCYTES 20.5 % (15-50); MCH 29.4 pg (26.0-34.0); MCHC 33.7 g/dL (31.0-37.0); MCV 87.3 fL (80.0-100.0); MEAN PLATELET VOLUME 9.5 fL (7.4-10.4); MONOCYTES 7.8 % (2-11); NEUTROPHILS 68.2 % (40-80); RBC 3.77 10x6/uL (4.00-5.40); RDW 13.5 % (11.5-14.5); WBC 8.6 10x3/uL (4.8-10.8)
[2020-04-04 11:39] LABS: PLATELET COUNT 350 10x3/uL (130-400)
[2020-04-04 12:02] VITALS: BP 167/66; Ht 152.4 cm; Wt 121.1 kg
[2020-04-04 12:43] LABS: ANION GAP 13.5 mmol/L (8-16); CALCIUM 8.6 mg/dL (8.5-10.1); CARBON DIOXIDE 25.9 mmol/L (21.0-32.0); POTASSIUM - SERUM 5.4 mmol/L (3.5-5.1)
[2020-04-04] MEDS ORDERED: HYDROCODON-ACE1 EAC7 PO (16:02)
--- NOTE | 2020-04-04 17:01 | NUR ---
1701 IV D/C'D WITH CANNULA INTACT, PRESSURE HELD AND DRSG PLACED. DISCHARGE INSTRUCTIONS GIVEN TO PT AND DAUGHTER, BOTH VERBALIZED AN UNDERSTANDING. OPERATIVE FOOT WITH CDI DRSG AND +CMS CHECK. DISCHARGED IN STABLE CONDITION
== END 2020-04-04 17:18 | disposition home or self-care (01) ==
LOC: D.OPS 11:05 → D.PAN 13:30 → D.OPS 13:30
PROVIDERS: Anesthesiology; ATTEND Podiatrist Foot & Ankle Surgery
DX: M86.9 Osteomyelitis, unspecified (principal); E11.621 Type 2 diabetes mellitus with foot ulcer

== ENCOUNTER → 2020-04-15 16:02 | Outpatient (CLI) | payer MEDICAID ==
[2020-04-04 12:02] VITALS: BMI 32.6
[~2020-04-15 16:02] MED LIST changes: +HYDROCODON-ACE1 EAC7 PO
== END | disposition home or self-care (01) ==
LOC: D.US 16:00
PROVIDERS: ATTEND Podiatrist Foot & Ankle Surgery
DX: I70.201 Unspecified atherosclerosis of native arteries of extremities, right leg (principal)

== ENCOUNTER → 2020-04-22 14:02 | Outpatient (CLI) | payer MEDICAID ==
[2020-04-04 12:02] VITALS: BMI 32.6
== END | disposition home or self-care (01) ==
LOC: D.CT 14:02
PROVIDERS: ATTEND Podiatrist Foot & Ankle Surgery
DX: I73.9 Peripheral vascular disease, unspecified (principal); I96 Gangrene, not elsewhere classified

== ENCOUNTER → 2020-04-22 22:37 | Outpatient (CLI) | payer MEDICAID ==
[2020-04-04 12:02] VITALS: BMI 32.6
== END | disposition home or self-care (01) ==
LOC: D.LABREF 22:37
PROVIDERS: ATTEND Podiatrist Foot & Ankle Surgery
DX: L03.115 Cellulitis of right lower limb (principal); I73.9 Peripheral vascular disease, unspecified

== ENCOUNTER 2020-04-23 10:09 | Inpatient (IN) | payer MEDICAID ==
[~2020-04-23] VITALS: Ht 152.4 cm; Wt 110.7 kg
--- NOTE | ~2020-04-23 | HEMODYNAMI ---
PATIENT:ALISTAIR CLEANING MEDICAL RECORD: [id number] : 58 LOCATION:D.MS [facility]2239 ADMISSION DATE: 04/23/20 Generatedon:04/24/202013:20 Patient name: ALISTAIR CLEANING Patient #: [id number] SSN: : 1960 Date of study: 04/24/2020 Page: Of Hemodynamic Procedure Report Patient Data Patient Demographics Procedure consent was obtained First Name: ALISTAIR Gender: Female Last Name: HERMILA : 1960 Middle Initial: A Age: 59 year(s) Patient #: [id number] Race: Unknown Additional ID: [id number] Contact details Address: [address] [place] [address] State: [place] City: [facility] Zip code: [address] Past Medical History Allergies: No known allergies Admission Admission Data Admission Date: 04/23/2020 Admission Time: 13:19 Room #: [facility] Procedure Procedure Types Cath Procedure Peripheral Cath Diagnostic Procedure Abd/Extremity Extremities Procedure Description Procedure Date Procedure Date: 04/24/2020 Procedure Start Time: 11:29 Procedure Staff Name Function Gonzales Herrera MD Performing Physician Sharmila Galeana RT Crane Man Melinda Bales RN Nurse Ana ALVARADO RN Nurse Nilson Beasley RT Scrub Procedure Data Cath Procedure Fluoroscopy Diagnostic fluoroscopy Total fluoroscopy Time: time: 25.8 min 25.8 min Diagnostic fluoroscopy Total fluoroscopy dose: dose: 1187 mGy 1187 mGy Contrast Material Contrast Material Type Amount (ml) Isovue 300 245 Procedure Medications Medication Administration Route Dosage Heparin Flush Bag added to field 3 bags (1000units/500ml NS) Lidocaine 1% added to field 20 Versed I.V. 1 mg Fentanyl I.V. 50 mcg Versed I.V. 1 mg Fentanyl I.V. 50 mcg Fentanyl I.V. 25 mcg Versed I.V. 0.5 mg Heparin Bolus I.V. 5000 units Versed I.V. 0.5 mg Fentanyl I.V. 25 mcg Versed I.V. 1 mg Fentanyl I.V. 50 mcg Fentanyl I.V. 50 mcg Versed I.V. 1 mg Nitroglycerin IC/IA I.A. 600 mcg Fentanyl I.V. 50 mcg Versed I.V. 1 mg Nitroglycerin IC/IA I.A. 400 mcg Hemodynamics Rest Heart Rate: 73 (bpm) Snapshots Pre Cath Intra NCS Post Cath Vital Signs Time Heart Resp SPO2 etCO2 NIBP (mmHg) Rhythm Pain Sedation Rate (ipm) (%) (mmHg) Status Level (bpm) 11:16:15 84 22 31.5 Measuring NSR 0 (11) 10(A) , No pain 11:17:39 84 18 21 Time NSR 0 (11) 10(A) Exceeded , No pain 11:21:34 79 22 31.5 Time NSR 0 (11) 10(A) Exceeded , No pain 11:24:30 83 21 34.5 239/117(153) NSR 0 (11) 10(A) , No pain 11:29:29 71 18 100 0 Measuring NSR 0 (11) 10(A) , No pain 11:30:06 85 24 100 0 171/90(133) NSR 0 (11) 10(A) , No pain 11:35:05 77 21 100 30.8 Measuring NSR 0 (11) 10(A) , No pain 11:35:38 83 28 100 27 121/106(116) NSR 0 (11) 10(A) , No pain 11:40:06 79 15 100 28.5 174/81(126) NSR 0 (11) 9(A) , No pain 11:44:37 81 15 100 35.3 167/83(114) NSR 0 (11) 8(A) , No pain 11:49:03 86 10 100 36 177/86(119) NSR 0 (11) 8(A) , No pain 11:53:27 76 11 100 37.5 166/92(126) NSR 0 (11) 8(A) , No pain 11:58:26 77 9 100 36.8 Measuring NSR 0 (11) 8(A) , No pain 11:58:57 79 10 100 36.8 152/82(115) NSR 0 (11) 8(A) , No pain 12:03:56 83 15 100 24.7 Measuring NSR 0 (11) 8(A) , No pain 12:05:18 82 13 100 36 Time NSR 0 (11) 8(A) Exceeded , No pain 12:09:09 79 14 100 38.3 173/81(113) NSR 0 (11) 8(A) , No pain 12:14:08 72 8 100 37.5 Measuring NSR 0 (11) 8(A) , No pain 12:15:32 79 8 100 36 Time NSR 0 (11) 8(A) Exceeded , No pain 12:20:31 66 10 100 38.3 Measuring NSR 0 (11) 8(A) , No pain 12:20:56 74 10 100 39 Time NSR 0 (11) 8(A) Exceeded , No pain 12:24:27 85 14 100 36.8 142/82(112) NSR 0 (11) 8(A) , No pain 12:28:33 82 14 99 37.5 153/88(115) NSR 0 (11) 8(A) , No pain 12:32:38 84 19 98 30.8 151/99(102) NSR 0 (11) 8(A) , No pain 12:36:48 71 9 100 33.8 141/80(111) NSR 0 (11) 8(A) , No pain 12:40:56 82 7 99 36.8 133/82(113) NSR 0 (11) 8(A) , No pain 12:45:02 81 9 99 36.8 145/79(102) NSR 0 (11) 8(A) , No pain 12:49:10 84 9 100 37.5 135/82(109) NSR 0 (11) 8(A) , No pain 12:54:09 85 11 98 27.7 Measuring NSR 0 (11) 8(A) , No pain 12:55:33 83 7 99 40.5 Time NSR 0 (11) 8(A) Exceeded , No pain 12:57:48 84 7 99 39 121/69(115) NSR 0 (11) 8(A) , No pain 13:01:44 84 6 98 30 115/99(112) NSR 0 (11) 8(A) , No pain 13:06:41 83 13 99 37.5 138/65(116) NSR 0 (11) 8(A) , No pain 13:10:46 80 11 99 39.8 140/86(124) NSR 0 (11) 8(A) , No pain 13:14:50 82 16 99 38.3 154/91(114) NSR 0 (11) 8(A) , No pain 13:19:02 84 19 100 0 165/89(127) NSR 0 (11) 8(A) , No pain Medications Time Medication Route Dose Verified Delivered Reason Notes Effe ctiveness by by 11:29:36 Heparin Flush added 3 used for Bag to bags procedure (1000units/500ml field NS) 11:29:51 Lidocaine 1% added 20ml Gonzales Rolon for local to vial Javier Herrera MD anesthetic field MD 11:30:07 Versed I.V. 1 mg Gonzales Lawrence for BurdNii gaspar RN sedation 11:30:21 Fentanyl I.V. 50 Gonzales Melinda for mcg Burda, Nii RN sedation 11:37:13 Versed I.V. 1 mg Gonzales Melinda for BurdaNii RN sedation 11:37:21 Fentanyl I.V. 50 Gonzales Melinda for mcg Burda, Nii RN sedation 11:43:58 Fentanyl I.V. 25 Gonzales Melinda for mcg Burda, Nii RN sedation 11:44:03 Versed I.V. 0.5 Gonzales Melinda for mg Burda, Nii RN sedation 11:52:27 Heparin Bolus I.V. 5000 Gonzales Minner Per units Javier, CHRISTIANO physician RN 11:52:45 Versed I.V. 0.5 Gonzales Minner for mg Burda, CHRISTIANO sedation RN 11:52:57 Fentanyl I.V. 25 Gonzales Minner for mcg Burda, CHRISTIANO sedation RN 12:12:24 Versed I.V. 1 mg Gonzales Melinda for Burda, Nii RN sedation 12:12:36 Fentanyl I.V. 50 Gonzales Melinda for mcg Burda, Nii RN sedation 12:34:42 Fentanyl I.V. 50 Gonzales Melinda for mcg Burda, Nii RN sedation 12:34:45 Versed I.V. 1 mg Gonzales Melinda for Javier, Nii RN sedation 12:39:59 Nitroglycerin I.A. 600 Gonzales Gonzales used for IC/IA mcg Javier Herrera MD procedure MD 12:49:00 Fentanyl I.V. 50 Gonzales Rolon for mcg Javier Herrera MD sedation 12:49:08 Versed I.V. 1 mg Gonzales Rolon for Javier Herrera MD sedation 12:59:18 Nitroglycerin I.A. 400 Gonzales Rolon used for IC/IA mcg Javier Herrera MD procedure MD Procedure Log Time Note 10:56:14 Time tracking: Regular hours (M-F 7:00 - 5:00) 10:56:33 Plan of Care:Hemodynamics will remain stable., Cardiac rhythm will remain stable., Comfort level will be maintained., Respiratory function will remain adequate., Patient/ family verbilizes understanding of procedure., Procedure tolerated without complication., Recovers from procedure without complications.. 10:56:40 Patient received from ED to IR Alert and oriented. Tansferred to table in Supine position. 10:56:44 Signed procedure consent form obtained from patient. 10:56:55 H&P Date Dictated: 04/24/2020 Within 30 days and on chart.. 10:56:57 Pre-procedure instructions explained to patient. 10:56:58 Pre-op teaching completed and patient verbalized understanding. 10:57:01 Family unavailable. 10:57:04 Patient NPO since Midnight. 10:57:13 Patient allergic to No known allergies 10:57:17 Is the patient allergic to Iodine/contrast media? No. 11:07:57 Is patient on blood thinner?No 11:09:04 - 11:09:05 ----Pre-sedation anethsthesia assessment.---- 11:09:08 Previous problem with sedation/anesthesia? No ? 11:09:11 Snore? Yes 11:09:13 Sleep apnea? No 11:09:16 Deviated septum? No 11:09:19 Opens mouth fully? Yes 11:09:21 Sticks out tongue? Yes 11:09:25 Airway obstruction? No ? 11:09:30 Dentures? No ? 11:09:32 - 11:09:51 Pre procedure: right dorsailis pedis pulse Doppler 11:09:56 Pre procedure: left dorsailis pedis pulse Doppler 11:10:00 Pre procedure: right posterior tibial pulse Doppler 11:10:07 Pre procedure: left posterior tibial pulse 0-Absent 11:10:25 Left groin area was prepped with chlora-prep and draped in sterile fashion 11:10:40 - 11:11:21 Use device set IR Diagnostic 11:11:23 Tegaderm 4 x 4 (1626W) opened to sterile field. 11:11:24 Sterile Angiographic Pack opened to sterile field. 11:11:25 Bag Decanter () opened to sterile field. 11:11:26 ACIST Manifold (45553) opened to sterile field. 11:11:27 ACIST Hand Control (19017) opened to sterile field. 11:11:28 ACIST Syringe (41910) opened to sterile field. 11:11:44 DOC .035 wire (D95404) opened to sterile field. 11:11:45 Micropuncture VSI 4FR kit opened to sterile field. 11:12:39 PARK 260 wire (V04986) opened to sterile field. 11:12:40 GLIDE CATHETER 5FR ANGLED 65cm (CG507) opened to sterile field. 11:12:41 GLIDE WIRE ANGLE 260cm (VQ6130) opened to sterile field. 11:12:50 Angiodynamics Omniflush 5Fr 65cm ([id number]) opened to sterile field. 11:13:11 SHEATH 5FR Canova (VWV427) opened to sterile field. 11:13:19 TORQUE DEVICE PLASTIC .038 ( TD01) opened to sterile field. 11:13:40 TUBING Contrast Injection High Pressure (JVG997Y) opened to sterile field. 11:14:08 - 11:14:13 ECG and BP/O2 sat monitors applied to patient. ::26 Vital chart was started ::28 Baseline sample Acquired. ::30 Full Disclosure recording started :14:32 - 11::57 Physician arrived 11::57 --------ALL STOP TIME OUT------ 11::59 Final Timeout: patient, procedure, and site verified with staff and physician. All members of the team are in agreement. 11:28:06 Fire Safety Assessment: A--An alcohol-based skin anteseptic being used preoperatively., C--Open oxygen or nitrous oxide is being used. 11:28:12 3a) 45-59 Moderately reduced kidney function. 11:28:32 Procedure started. 11:29:20 Local anesthetic to left femerol artery with Lidocaine 1% by Gonzales Herrera MD.INITIAL ACCESS ONLY 11:29:28 Arterial access obtained using ultrasound guidance. 11:29:36 Heparin Flush Bag (1000units/500ml NS) 3 bags added to field was administered by ; used for procedure; Verbal order read back and verified. 11:29:51 Lidocaine 1% 20ml vial added to field was administered by Gonzales Herrera MD; for local anesthetic; Verbal order read back and verified. 11:30:07 Versed 1 mg I.V. was administered by Melinda Bales RN; for sedation; Verbal order read back and verified. 11:30:21 Fentanyl 50 mcg I.V. was administered by Melinda Bales RN; for sedation ; Verbal order read back and verified. 11:30:50 AMPLATZ Super Stiff 75cm wire ([id number]) opened to sterile field. 11:37:13 Versed 1 mg I.V. was administered by Melinda Bales RN; for sedation; Verbal order read back and verified. 11:37:21 Fentanyl 50 mcg I.V. was administered by Melinda Bales RN; for sedation ; Verbal order read back and verified. 11:43:58 Fentanyl 25 mcg I.V. was administered by Melinda Bales RN; for sedation ; Verbal order read back and verified. 11:44:03 Versed 0.5 mg I.V. was administered by Melinda Bales RN; for sedation; Verbal order read back and verified. 11:50:29 COOK SHEATH 6FR RAABE 70CM (S13578) opened to sterile field. 11:51:47 CXI SUPPORT .035 135 CM STR catheter (U79461) opened to sterile field. 11:52:27 Heparin Bolus 5000 units I.V. was administered by Ana ALVARADO RN; Pe r physician; Verbal order read back and verified. 11:52:45 Versed 0.5 mg I.V. was administered by Ana ALVARADO RN; for sedation; Verbal order read back and verified. 11:52:57 Fentanyl 25 mcg I.V. was administered by Ana ALVARADO RN; for sedation; Verbal order read back and verified. 11:56:13 ROADRUNNER .035 260 glide wire (O06151) opened to sterile field. 12:12:24 Versed 1 mg I.V. was administered by Melinda Bales RN; for sedation; Verbal order read back and verified. 12:12:36 Fentanyl 50 mcg I.V. was administered by Melinda Bales RN; for sedation ; Verbal order read back and verified. 12:12:53 GUIDEWIRE V-18 CONTROL ([id number]) opened to sterile field. 12:21:11 CHOICE PT Extra Support J 300cm guide wire ([id number]) opened to steril e field. 12:25:05 INFLATOR BasixTOUCH (SQ5000) opened to sterile field. 12:26:43 Inflate balloon Inflation number: 1 A NANOCROSS ELITE 2MM-1.5 MM X 210 X 150 ([id number]) was prepped and advanced across the Undefined1 , then inflated . 12:29:51 Inflate balloon Inflation number: 2 A NANOCROSS ELITE 2.5MM-2 MM X 210 X 150 ([id number]) was prepped and advanced across the Undefined1 , then inflated . 12:34:42 Fentanyl 50 mcg I.V. was administered by Melinda Bales RN; for sedation ; Verbal order read back and verified. 12:34:45 Versed 1 mg I.V. was administered by Melinda Bales RN; for sedation; Verbal order read back and verified. 12:39:59 Nitroglycerin IC/IA 600 mcg I.A. was administered by Gonzales Herrera MD; used for procedure; Verbal order read back and verified. 12:45:58 Inflate balloon Inflation number: 3 A CHOCOLATE 2.5 x 120 x 150 balloon ([id number]) was prepped and advanced across the Undefined1 , then inflated . 12:48:54 Inflate balloon Inflation number: 1 A CHOCOLATE 3.0 x 80 x 150 balloon ([id number]) was prepped and advanced across the Undefined2 , then inflated . 12:49:00 Fentanyl 50 mcg I.V. was administered by Gonzales Herrera MD; for sedation; Verbal order read back and verified. 12:49:08 Versed 1 mg I.V. was administered by Gonzales Herrera MD; for sedation; Verbal order read back and verified. 12:59:18 Nitroglycerin IC/IA 400 mcg I.A. was administered by Gonzales Herrera MD; used for procedure; Verbal order read back and verified. 13:12:21 ANGIOSEAL-VIP PLUS 6 FR opened to sterile field. 13:15:38 Procedure ended.(Physican Out) 13:15:59 Fluoroscopy time 25.80 minutes. 13:16:09 Flurop Dose total: 1187 13:16:09 Fluoroscopy dose: 1187 mGy 13:16:14 Contrast amount:Isovue 300 245ml. 13:17:34 Procedure and supply charges have been captured, reviewed, submitted an d are correct. 13:20:15 Vital chart was stopped Intervention Summary Intervention Notes Time ActionType Lesion and Equipment Used Action# Pressure Duration Attributes 12:26:43 Inflate Undefined1 NANOCROSS ELITE 1 0 00:00 balloon 2.5MM-2 MM X 210 X 150 ([id number]) 12:29:51 Inflate Undefined1 NANOCROSS ELITE 2 0 00:00 balloon 2.5MM-2 MM X 210 X 150 ([id number]) 12:45:58 Inflate Undefined1 CHOCOLATE 2.5 x 3 0 00:00 balloon 120 x 150 balloon ([id number]) 12:48:54 Inflate Undefined2 CHOCOLATE 3.0 x 1 0 00:00 balloon 80 x 150 balloon ([id number]) Device Usage Item Name Manufacture Quantity Catalog Number [facility] nt Minimal Lot# / Charge Number Stock Stock Serial# Code Tegaderm 4 x 4 3M 1 1626W 518396 906378 36647 7 5 (1626W) Sterile Cardinal 1 [id number] 151320 51862 8 5 Angiographic Pack Health Bag Decanter Microtek 1 2001S 278206 68861 62084 0 5 (2002S) Medical Inc. ACIST Manifold Acist Medical 1 55760 792332 205279 05988 3 5 (51038) Systems Inc ACIST Hand Acist Medical 1 59811 418932 203684 56189 7 5 Control (49001) Systems Inc ACIST Syringe Acist Medical 1 87172 123748 997223 73071 6 20 (66584) Systems Inc DOC .035 wire Cook Medical 1 Q19668 607166 08182 9 5 (H54561) Micropuncture VSI VSI VASCULAR 1 7266V 836347 87708 4 5 4FR kit SOLUTIONS PARK 260 wire Cook Medical 1 J77134 335298 74578 75341 3 5 (P32870) GLIDE CATHETER Terumo 1 CG507 993047 70890 0 5 5FR ANGLED 65cm (CG507) GLIDE WIRE ANGLE Terumo 1 OI4124 675821 452170 26841 9 5 260cm (VA7108) Angiodynamics Angiodynamics 1 06034703 622843 735653 72618 0 5 Omniflush 5Fr 65cm (13800477) SHEATH 5FR Terumo 1 LJB607 557312 174784 73538 6 5 Canova (SGT068) TORQUE DEVICE Brooks 1 TD01 956886 598969 77295 5 5 PLASTIC .038 ( Scientific TD01) TUBING Contrast [facility] Medical 1 LKB421L 792651 052326 65326 6 5 Injection High Pressure (WLD741F) AMPLATZ Super Brooks 1 [id number] 506468 090528 50940 9 5 Stiff 75cm wire Scientific ([id number]) COOK SHEATH 6FR Cook Medical 1 M87430 764076 27368 33641 8 1 [id number] RAABE 70CM (U98483) CXI SUPPORT .035 Cook Medical 1 W39436 518192 630591 91706 4 5 [id number] 135 CM STR catheter (Z91222) ROADRUNNER .035 Cook Medical 1 S06359 269132 639480 78688 8 5 [id number] 260 glide wire (X09790) GUIDEWIRE V-18 Brooks 1 119971 012922 83620 2 1 CONTROL Scientific ([id number]) CHOICE PT Extra Brooks 1 [id number] 600452 621969 27879 6 5 Support J 300cm Scientific guide wire (7939941T9) INFLATOR [facility] Medical 1 VR2368 268235 369223 94625 7 5 BasixTOUCH (MX6957) NANOCROSS ELITE Medtronic 2 [id number] 086025 99247 2 1 2.5MM-2 MM X 210 X 150 ([id number]) CHOCOLATE 2.5 x Medtronic 1 [id number] 223850 497066 17282 8 5 120 x 150 balloon O ([id number]) TW CHOCOLATE 3.0 x Medtronic 1 [id number] 413276 545745 22492 3 5 80 x 150 balloon O ([id number]) TW ANGIOSEAL-[facility] 1 452523 825565 826393 13942 6 5 PLUS 6 FR Signature Audit Gentry Stage Time Signature Unsigned Intra-Procedure 04/24/2020 Sharmila Galeana 1:20:09 PM RT(R) [address] [place] [address]
[2020-04-23 11:30] LABS: BASOPHILS 0.4 % (0-2); EOSINOPHILS 1.6 % (0-7); HEMATOCRIT 35.5 % (36.0-48.0); HEMOGLOBIN 11.2 g/dL (12-16); IMMATURE GRANULOCYTES 0.4 % (0-5); LYMPHOCYTES 22.7 % (15-50); MCH 28.2 pg (26.0-34.0); MCHC 31.5 g/dL (31.0-37.0); MCV 89.4 fL (80.0-100.0); MEAN PLATELET VOLUME 9.4 fL (7.4-10.4); MONOCYTES 7.2 % (2-11); NEUTROPHILS 67.7 % (40-80); RBC 3.97 10x6/uL (4.00-5.40); WBC 8.4 10x3/uL (4.8-10.8)
[2020-04-23 11:31] LABS: PLATELET COUNT 535 10x3/uL (130-400)
[2020-04-23 11:36] LABS: ANION GAP 10.9 mmol/L (8-16); CALCIUM 9.8 mg/dL (8.5-10.1); CARBON DIOXIDE 27.4 mmol/L (21.0-32.0); CREATININE - SERUM 1.3 mg/dL (0.6-1.3); POTASSIUM - SERUM 4.3 mmol/L (3.5-5.1)
[2020-04-23 11:49] LABS: ALBUMIN 2.6 g/dL (3.4-5.0); BILIRUBIN - TOTAL 0.36 mg/dL (0.2-1.3); PROTEIN - SERUM 9.1 g/dL (6.4-8.2)
[2020-04-23 16:31] VITALS: BP 181/61
[2020-04-23 20:36] VITALS: BP 145/52
--- NOTE | 2020-04-23 21:06 | NUR ---
BS REPORT TO ZHOU MONTEIRO
--- NOTE | 2020-04-23 21:18 | NUR ---
DR. HESS AT BEDSIDE SPEAKING WITH PT.
--- NOTE | 2020-04-23 21:50 | NUR ---
FSBS 337
[2020-04-23 22:00] VITALS: BP 162/62
--- NOTE | 2020-04-23 23:38 | NUR ---
FSBS 306 AT THIS TIME. PT RESTING COMFORTABLY IN BED, SUPINE POSITION. NO SIGNS DISTRESS NOTED AT THIS TIME. WILL CONTINUE TO MONITOR.
[2020-04-24] VITALS (7 sets, daily range): BP systolic 130–171; BP diastolic 30–77; BMI 52.1
--- NOTE | 2020-04-24 04:59 | NUR ---
COVID SWAB SENT TO LAB
[2020-04-24 06:29] LABS: BASOPHILS 0.6 % (0-2); EOSINOPHILS 2.3 % (0-7); HEMATOCRIT 32.8 % (36.0-48.0); HEMOGLOBIN 10.3 g/dL (12-16); IMMATURE GRANULOCYTES 0.3 % (0-5); LYMPHOCYTES 25.3 % (15-50); MCH 28.1 pg (26.0-34.0); MCHC 31.4 g/dL (31.0-37.0); MCV 89.4 fL (80.0-100.0); MEAN PLATELET VOLUME 9.3 fL (7.4-10.4); MONOCYTES 9.4 % (2-11); NEUTROPHILS 62.1 % (40-80); PLATELET COUNT 435 10x3/uL (130-400); RBC 3.67 10x6/uL (4.00-5.40); RDW 14.1 % (11.5-14.5)
[2020-04-24 06:44] LABS: WBC 6.2 10x3/uL (4.8-10.8)
[2020-04-24 06:50] LABS: INR 1.1 (0.85-1.17); PROTIME 14.2 SECONDS (11.6-15.0)
[2020-04-24 06:56] LABS: ANION GAP 10.8 mmol/L (8-16); CALCIUM 8.9 mg/dL (8.5-10.1); CARBON DIOXIDE 27.6 mmol/L (21.0-32.0); CREATININE - SERUM 1.1 mg/dL (0.6-1.3); POTASSIUM - SERUM 4.4 mmol/L (3.5-5.1)
--- NOTE | 2020-04-24 07:21 | NUR ---
REPORT TO ZHOU HAYES
--- NOTE | 2020-04-24 10:20 | NUR ---
MAMIE 3.375 INFUISON COMPLETE @ 1159
--- NOTE | 2020-04-24 10:54 | NUR ---
TO OR FOR PROCEDURE CONDITIN STABLE
--- NOTE | 2020-04-24 12:30 | NUR ---
CALLED IR AND SPOKE LOUIS. INFORMED HER PT GOING TO ROOM #[id number] AFTER PROCEDURE
--- NOTE | 2020-04-24 12:40 | NUR ---
REPORT TO ZHOU BARBA
--- NOTE | 2020-04-24 13:33 | NUR ---
RECEIVED PT FROM IR. VIA BED. NO ACUTE DISTRESS NOTED. DENIES PAIN AT THIS TIME. BED IN LOWEST POSITION, LOCKED, SIDERAILS UP X2. CALL LIGHT WITHIN REACH. DAUGHTER AT BEDSIDE. NEEDS ANTICIPATED AND MET. WILL CONTINUE TO MONITOR
--- NOTE | 2020-04-24 21:15 | NUR ---
A&0 X 4, SUPINE IN BED, DAUGHTER AT BEDSIDE. DRESSING TO LEFT GROIN CDI. DRESSING TO RIGHT FOOT CDI. PT DENIES PAIN AT THIS TIME. UP TO RESTROOM, STANDBY ASSIST.CONSENTS SIGNED. SANDWICH TRAY PER REQUEST. NO FURTHER NEEDS VOICED, CTM.
[2020-04-25] VITALS (7 sets, daily range): BP systolic 125–164; BP diastolic 40–82; Ht 152.4 cm; Wt 110.7 kg
--- NOTE | 2020-04-25 07:10 | NUR ---
A&O RESTING IN BED WITH EYES OPEN. DAUGHTER AT BEDSIDE. NO C/O PAIN. NO S/S OF ACUTE DISTRESS NOTED. SCHEDULED FOR SURGERY TODAY TO HAVE RIGHT FOOT AMPUTATED. NPO. RIGHT FOOT NECROTIC, DRESSING C/D/I. DRESSING TO RIGHT GROIN, C/D/I. IV TO LEFT AC, NS INFUSING @ 50ML/HR. SITE PATENT WITHOUT REDNESS OR SWELLING. DENIES ANY NEEDS AT THIS TIME. CALL LIGHT IN REACH. WILL CONTINUE TO MONITOR.
[2020-04-25 08:34] LABS: HEMATOCRIT 34.2 % (36.0-48.0); HEMOGLOBIN 10.7 g/dL (12-16); MCH 28.1 pg (26.0-34.0); MCHC 31.3 g/dL (31.0-37.0); MCV 89.8 fL (80.0-100.0); MEAN PLATELET VOLUME 9.7 fL (7.4-10.4); PLATELET COUNT 398 10x3/uL (130-400); RBC 3.81 10x6/uL (4.00-5.40); RDW 14.2 % (11.5-14.5); WBC 7.2 10x3/uL (4.8-10.8)
[2020-04-25 08:44] LABS: ALBUMIN 2.3 g/dL (3.4-5.0); ANION GAP 11.1 mmol/L (8-16); BILIRUBIN - TOTAL 0.38 mg/dL (0.2-1.3); CARBON DIOXIDE 26.9 mmol/L (21.0-32.0); CREATININE - SERUM 1.1 mg/dL (0.6-1.3); PROTEIN - SERUM 8.3 g/dL (6.4-8.2)
--- NOTE | 2020-04-25 10:36 | MORECARE ---
CASE MANAGEMENT DISCHARGE SUMMARY PATIENT: ALISTAIR CLEANING UNIT: [id number] ADM DATE: 04/23/20 AGE: 59 : 58 SEX: F ROOM/BED: D.2239 AUTHOR: ORQUIDEA LOPEZ PHYSICIAN: REFERRING PHYSICIAN: PALMA PIÑA MD DATE OF SERVICE: 04/25/20 Discharge Plan Patient Name: ALISTAIR CLEANING Facility: [facility]:[place] : 1960 Planned Disposition: Anticipated Discharge Date: Discharge Date: Expected LOS: Initial Reviewer: [email or web address] Initial Review Date: 04/23/2020 Generated: 04/25/20 11:35 am Patient Name: ALISTAIR CLEANING Page 54184 at 1036 All edits/amendments must be made on the electronic document DICTATION DATE: 04/25/20 1036 SILVER SOLUTION MIXER: RAUL 04/25/20 1036 RPT#: [id number] DC DATE: STATUS: ADM IN [facility] [address] [place] [address] END OF REPORT
--- NOTE | 2020-04-25 10:44 | MORECARE ---
CASE MANAGEMENT DISCHARGE SUMMARY PATIENT: ALISTAIR CLEANING UNIT: [id number] ADM DATE: 04/23/20 AGE: 59 : 58 SEX: F ROOM/BED: D.2239 AUTHOR: ORQUIDEA LOPEZ PHYSICIAN: REFERRING PHYSICIAN: PALMA PIÑA MD DATE OF SERVICE: 04/25/20 Discharge Plan Patient Name: ALISTAIR CLEANING [facility] : 1960 Planned Disposition: Anticipated Discharge Date: Discharge Date: Expected LOS: Initial Reviewer: [email or web address] Initial Review Date: 04/23/2020 Generated: 04/25/20 11:43 am DCPIA - Discharge Planning Initial Assessment Updated by [email or web address]: Slime Coulter on 04/25/20 10:38 am * Is the patient Alert and Oriented? Yes * PCP TORIN * Preadmission Environment Home with Family Last DP export: 04/25/20 9:36 a Patient Name: ALISTAIR CLEANING Page 19320 at 1044 All edits/amendments must be made on the electronic document DICTATION DATE: 04/25/20 1043 HIGH SCHOOL COMBINATION TEACHER: RAUL 04/25/20 1043 RPT#: [id number] DC DATE: STATUS: ADM IN [facility] [address] [place] [address] END OF REPORT
--- NOTE | 2020-04-25 10:51 | MORECARE ---
CASE MANAGEMENT DISCHARGE SUMMARY PATIENT: ALISTAIR CLEANING UNIT: [id number] ADM DATE: 04/23/20 AGE: 59 : 58 SEX: F ROOM/BED: D.2239 AUTHOR: ORQUIDEA LOPEZ PHYSICIAN: REFERRING PHYSICIAN: PALMA PIÑA MD DATE OF SERVICE: 04/25/20 Discharge Plan Patient Name: ALISTAIR CLEANING Facility: [facility]:[place] : 1960 Planned Disposition: Anticipated Discharge Date: Discharge Date: Expected LOS: Initial Reviewer: [email or web address] Initial Review Date: 04/23/2020 Generated: 04/25/20 11:51 am Comments DCP- Discharge Planning Updated by [email or web address]: Slime Coulter on 04/25/20 9:[address] Patient Name: ALISTAIR CLEANING Admission Status: ER Accout number: [id number] Admission Date: 04-23-2020 : 1960 Admission Diagnosis:PAIN IN RIGHT FOOT Attending: PALMA PIÑA Current LOS: 2 Anticipated DC Date: Planned Disposition: Primary Insurance: [place]ICAID [place] Discharge Planning Comments: CM met with patient at bedside after explaining CM role and obtaining verbal consent. CM discussed availability / needs of home health, REHAB and medical equipment. STATES MAY NEED A WALKER AND HOME HEALTH. IS SCHEDULED FOR A BELOW THE KNEE AMPUTATION, WILL ASSESS FOR FURTHER NEEDS AFTER SURGERY. Internet Marketing Manager: Slime Coulter DCPIA - Discharge Planning Initial Assessment Updated by [email or web address]: Slime Coulter on 04/25/20 10:43 am * Is the patient Alert and Oriented? Yes * PCP SKETAS * Preadmission Environment Home with Family * ADLs Independent * Other Equipment BSC,WC * Community resources currently utilized None * Additional services required to return to the preadmission environment? Yes * Can the patient safely return to the preadmission environment? Yes * Has this patient been hospitalized within the prior 30 days at any hospital? Yes Last DP export: 04/25/20 9:44 a Patient Name: ALISTAIR CLEANING Page 64381 at 1051 All edits/amendments must be made on the electronic document DICTATION DATE: 04/25/201050 DRILL SERGEANT: DM 04/25/201050 RPT#: [id number] DC DATE: STATUS: ADM IN [facility] [address] [place] [address] END OF REPORT
--- NOTE | 2020-04-25 13:30 | NUR ---
PATIENT TAKEN TO SURGERY VIA BED ACCOMPANIED BY SURGICAL STAFF
[2020-04-25 13:43] LABS: BASOPHILS 1 % (0-2); EOSINOPHILS 8 % (0-7); LYMPHOCYTES 20 % (15-50); MONOCYTES 8 % (2-11); NEUTROPHILS 61 % (40-80); PLATELET ESTIMATE INCREASED; ROULEAUX OCC
--- NOTE | 2020-04-25 14:50 | NUR ---
Nutrition follow-up: Pt in surgery for BKA this afternoon NPO Labs reviewed Wt: 244# RDN following.
--- NOTE | 2020-04-25 15:13 | NUR ---
PATIENT DENIES PAIN. STATES EXTREMITY IS NUMB AND DOESNT FEEL ANYTHING.
--- NOTE | 2020-04-25 15:36 | NUR ---
RECEIVED PATIENT FROM RECOVERY. ALERT AND ORIENTED. NO C/O PAIN. NO S/S OF ACUTE DISTRESS NOTED. WOUND VAC TO RIGHT LEG. DENIES ANY NEEDS AT THIS TIME. CALL LIGHT IN REACH. WILL CONTINUE TO MONITOR. VITALS WNL.
--- NOTE | 2020-04-25 18:35 | NUR ---
RESTING IN BED WITH EYES CLOSED. RESPIRATIONS EVEN AND UNLABORED. NO S/S OF ACUTE DISTRESS NOTED. CALL LIGHT IN REACH. WILL CONTINUE TO MONITOR.
--- NOTE | 2020-04-25 20:16 | NUR ---
I have reviewed this patient and I concur with the Shift Assessment completed by the Licensed Practical Nurse today this shift.
[2020-04-26 04:00] VITALS: BP 147/63
[2020-04-26 07:05] LABS: BASOPHILS 0.9 % (0-2); HEMATOCRIT 31.8 % (36.0-48.0); HEMOGLOBIN 9.5 g/dL (12-16); IMMATURE GRANULOCYTES 0.5 % (0-5); LYMPHOCYTES 30.3 % (15-50); MCH 27.1 pg (26.0-34.0); MCHC 29.9 g/dL (31.0-37.0); MCV 90.9 fL (80.0-100.0); MONOCYTES 8.2 % (2-11); NEUTROPHILS 57.1 % (40-80); PLATELET COUNT 300 10x3/uL (130-400); RDW 14.3 % (11.5-14.5); WBC 4.3 10x3/uL (4.8-10.8)
--- NOTE | 2020-04-26 07:08 | NUR ---
I have reviewed this patient and I concur with the Shift Assessment completed by the Licensed Practical Nurse today this shift.
[2020-04-26 09:04] LABS: ALBUMIN 2.4 g/dL (3.4-5.0); ANION GAP 9.7 mmol/L (8-16); BILIRUBIN - TOTAL 0.27 mg/dL (0.2-1.3); CALCIUM 8.6 mg/dL (8.5-10.1); CARBON DIOXIDE 29.7 mmol/L (21.0-32.0); CREATININE - SERUM 1.2 mg/dL (0.6-1.3); POTASSIUM - SERUM 4.4 mmol/L (3.5-5.1); PROTEIN - SERUM 7.5 g/dL (6.4-8.2)
[2020-04-26 10:10] VITALS: BP 169/88
--- NOTE | 2020-04-26 12:00 | NUR ---
PATIENT IN ROOM. DENIES NEEDS A THIS TIME. FREE FROM SIGNS OF DISTRESS. WILL CONTINUE TO MONITOR.
--- NOTE | 2020-04-26 13:45 | NUR ---
Nutrition Follow-up: Had right foot amputated yesterday. Diet: Diabetic PO intake: not being recorded in EMR. Ate 100% of breakfast tray this AM. Last BM: None recorded since admit. Wt: 243.6# (04/25/20) Meds noted: lasix, SSI, zosyn Labs noted: GFR 48(L), POC Glu 267(H), Alk phos 257(H), Alb 2.4(L) Recommend continue current diet. RD following.
[2020-04-26 14:18] VITALS: BP 187/83
[2020-04-26 16:49] VITALS: BP 172/53
--- NOTE | 2020-04-26 18:43 | NUR ---
SITTING UP IN BED TALKING ON THE PHONE. NO C/O PAIN. NO S/S OF ACUTE DISTRESS NOTED. DENIES ANY NEEDS AT THIS TIME. CALL LIGHT IN REACH. WILL CONTINUE TO MONITOR.
[2020-04-26 20:00] VITALS: BP 159/48
[2020-04-27] VITALS: BP 187/73
[2020-04-27 04:00] VITALS: BP 174/52
[2020-04-27 06:52] LABS: BASOPHILS 0.6 % (0-2); EOSINOPHILS 3.9 % (0-7); HEMATOCRIT 33.2 % (36.0-48.0); HEMOGLOBIN 10.3 g/dL (12-16); IMMATURE GRANULOCYTES 0.2 % (0-5); LYMPHOCYTES 35.2 % (15-50); MCH 28.1 pg (26.0-34.0); MCV 90.7 fL (80.0-100.0); MEAN PLATELET VOLUME 9.8 fL (7.4-10.4); MONOCYTES 8.6 % (2-11); NEUTROPHILS 51.5 % (40-80); PLATELET COUNT 318 10x3/uL (130-400); RBC 3.66 10x6/uL (4.00-5.40); RDW 14.3 % (11.5-14.5); WBC 5.1 10x3/uL (4.8-10.8)
--- NOTE | 2020-04-27 07:15 | NUR ---
RECEIVED BEDSIDE REPORT. PT SITTING IN BED, A&O X4. PIV TO LEFT SHOULDER, PATENT AND INFUSING, NO REDNESS OR SWELLING. RIGHT FOOT AMPUTATION, WOUND VAC DRAINING. SCARS ON MIDLINE ABD AND LOWER RIGHT AND LEFT ABD. PT ON BEDREST. EDUCATED PT ON CL AND NEEDS, VERBALIZED UNDERSTANDING. BED LOW, RAILS X2. CL IN REACH, WILL CONTINUE TO MONITOR.
--- NOTE | 2020-04-27 07:20 | NUR ---
ALERT AND ORENTED able to voice needs and wants to staff. daughter at bedsiide. iv to left shoulder with ns at 50. amputation to right lower leg/ foot. javier rap in place wound vac in place and working no noted output this shift. no needs call light and water in reach.
[2020-04-27 07:37] LABS: ALBUMIN 2.3 g/dL (3.4-5.0); ANION GAP 9.6 mmol/L (8-16); BILIRUBIN - TOTAL 0.3 mg/dL (0.2-1.3); CALCIUM 8.6 mg/dL (8.5-10.1); CARBON DIOXIDE 29.1 mmol/L (21.0-32.0); CREATININE - SERUM 1.2 mg/dL (0.6-1.3)
[2020-04-27 07:48] LABS: POTASSIUM - SERUM 3.7 mmol/L (3.5-5.1)
[2020-04-27 09:02] LABS: MAGNESIUM - SERUM 1.7 mg/dL (1.8-2.4); PHOSPHOROUS 3.1 mg/dL (2.5-4.9); POTASSIUM - SERUM 3.9 mmol/L (3.5-5.1)
[2020-04-27 09:15] VITALS: BP 161/62
--- NOTE | 2020-04-27 10:35 | NUR ---
PROVIDED PT WITH WIPES AND WHITE PADS, CHANGED LININS. BED LOW, CL IN REACH.
[2020-04-27 12:23] VITALS: BP 174/58
[2020-04-27 16:00] VITALS: BP 188/70
--- NOTE | 2020-04-27 16:06 | NUR ---
I have reviewed this patient and I concur with the Shift Assessment completed by the Licensed Practical Nurse today this shift.
--- NOTE | 2020-04-27 19:48 | NUR ---
PATIENT RESTING IN BED WITH NO S/S OF DISTRESS. PATIENT DENIES NEEDS AT THIS TIME. BED IN LOWEST POSITION AND CALL LIGHT WITHIN REACH. ENCOURAGED THE PATIENT TO CALL IF SHE HAS NEEDS.
--- NOTE | 2020-04-27 20:38 | NUR ---
ADMINISTERED MEDS PER ORDERS. DENIES OTHER NEEDS. WILL CONTINUE TO MONITOR.
[2020-04-27 21:35] VITALS: BP 170/54
[2020-04-28] VITALS: BP 173/56
[2020-04-28 04:00] VITALS: BP 186/67
[2020-04-28 05:59] LABS: EOSINOPHILS 5.6 % (0-7); HEMATOCRIT 35.2 % (36.0-48.0); IMMATURE GRANULOCYTES 0.2 % (0-5); LYMPHOCYTES 34.6 % (15-50); MCHC 31.3 g/dL (31.0-37.0); MCV 89.6 fL (80.0-100.0); MEAN PLATELET VOLUME 9.7 fL (7.4-10.4); MONOCYTES 7.7 % (2-11); NEUTROPHILS 50.9 % (40-80); PLATELET COUNT 328 10x3/uL (130-400); RBC 3.93 10x6/uL (4.00-5.40); WBC 5.2 10x3/uL (4.8-10.8)
[2020-04-28 06:52] LABS: ALBUMIN 2.5 g/dL (3.4-5.0); ANION GAP 12.9 mmol/L (8-16); BILIRUBIN - TOTAL 0.24 mg/dL (0.2-1.3); CALCIUM 8.6 mg/dL (8.5-10.1); CARBON DIOXIDE 25.8 mmol/L (21.0-32.0); CREATININE - SERUM 1.2 mg/dL (0.6-1.3); POTASSIUM - SERUM 3.7 mmol/L (3.5-5.1)
--- NOTE | 2020-04-28 07:34 | NUR ---
LYING IN BED AWAKE, ALERT, RESP EVEN AND UNLABORED ON RA, WOUND VAC IN PROGRESS TO RT FOOT. DTR SLEEPING AT BEDSIDE. NO DISTRESS NOTED. SPEAKS PLEASENTLY TO NURSE, DENIES ANY NEEDS.
--- NOTE | 2020-04-28 08:14 | NUR ---
AM MEDS ADMINISTERED AT THIS TIME W/SIP OF WATER, HELD ASA LOVENOX AND PLAVIX--PT LEAVING FOR SURGERY NOW--SMILLING, JOLLY, NO DISTRESS NOTED, DTR AT BEDSIDE.
--- NOTE | 2020-04-28 11:09 | NUR ---
PATIENT STATES SHE IS HAVING 10/10 PAIN. NO GRIMACING NOTED. VSS. ROOM AIR AT 94%. PATIENT GOES BACK TO SLEEP AFTER ANSWERING QUESTIONS.
--- NOTE | 2020-04-28 12:50 | NUR ---
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 PT IS HAPPY AND TALKING TO NURSES AND FAMILY--NO DISTRESS NOTED.
[2020-04-28 16:22] VITALS: BP 145/77
--- NOTE | 2020-04-28 19:29 | NUR ---
PATIENT RESTING IN BED WITH DAUGHTER AT BEDSIDE AND NO S/S OF DISTRESS. WOUND VAC IN PLACE. PATIENT REQUESTED PAIN MEDS WITH NIGHT MEDS. PATIENT DENIES OTHER NEEDS. ENCOURAGED THE PATIENT TO CALL IF SHE HAS OTHER NEEDS. WILL CONTINUE TO MONITOR.
--- NOTE | 2020-04-28 19:54 | NUR ---
ADMINISTERED MEDS PER ORDERS. PATIENT DENIES OTHER NEEDS. WILL CONTINUE TO MONITOR.
[2020-04-28 20:00] VITALS: BP 150/39
[2020-04-29] VITALS: BP 185/57
[2020-04-29 00:59] LABS: BILIRUBIN NEGATIVE (NEGATIVE); KETONE NEGATIVE (NEGATIVE); NITRITE NEGATIVE (NEGATIVE); UROBILINOGEN NORMAL mg/dL (< 2)
[2020-04-29 01:03] LABS: WHITE CELLS - URINE 0-5 HPF (0-4)
[2020-04-29 01:04] LABS: BACTERIA FEW HPF (NONE SEEN); EPITHELIAL CELLS 0-5 /hpf (0-5)
[2020-04-29 01:36] LABS: UDS - AMPHET NEGATIVE QUAL (NEGATIVE); UDS - BARB NEGATIVE QUAL (NEGATIVE); UDS - BENZO POSITIVE QUAL (NEGATIVE); UDS - COCAINE NEGATIVE QUAL (NEGATIVE); UDS - OPIATE POSITIVE QUAL (NEGATIVE); UDS - PCP NEGATIVE QUAL (NEGATIVE); UDS - THC NEGATIVE QUAL (NEGATIVE)
[2020-04-29 04:00] VITALS: BP 194/63
[2020-04-29 07:05] LABS: ALBUMIN 2.3 g/dL (3.4-5.0); ANION GAP 10.4 mmol/L (8-16); BILIRUBIN - TOTAL 0.23 mg/dL (0.2-1.3); CALCIUM 8.4 mg/dL (8.5-10.1); CARBON DIOXIDE 25.2 mmol/L (21.0-32.0); CREATININE - SERUM 1.3 mg/dL (0.6-1.3); POTASSIUM - SERUM 3.6 mmol/L (3.5-5.1); PROTEIN - SERUM 7.9 g/dL (6.4-8.2)
--- NOTE | 2020-04-29 07:10 | NUR ---
A&O RESTING IN BED WITH EYES OPEN. DAUGHTER AT BEDSIDE. NO C/O PAIN. NO S/S OF ACUTE DISTRESS NOTED. UP WITH WALKER. POD #1 RIGHT BKA, DRESSING C/D/I WITH WOUND VAC. ON 2L O2, NC. IV TO LEFT SHOULDER, NS INFUSING @ 50ML/HR. SITE PATENT WITHOUT REDNESS OR SWELLING. DENIES ANY NEEDS AT THIS TIME. CALL LIGHT IN REACH. WILL CONTINUE TO MONITOR.
[2020-04-29 07:42] LABS: BASOPHILS 0.3 % (0-2); EOSINOPHILS 3.4 % (0-7); HEMATOCRIT 30.8 % (36.0-48.0); HEMOGLOBIN 9.7 g/dL (12-16); IMMATURE GRANULOCYTES 0.3 % (0-5); LYMPHOCYTES 20.4 % (15-50); MCH 28.1 pg (26.0-34.0); MCHC 31.5 g/dL (31.0-37.0); MCV 89.3 fL (80.0-100.0); MEAN PLATELET VOLUME 9.7 fL (7.4-10.4); MONOCYTES 8.1 % (2-11); NEUTROPHILS 67.5 % (40-80); PLATELET COUNT 320 10x3/uL (130-400); RBC 3.45 10x6/uL (4.00-5.40); RDW 14.2 % (11.5-14.5)
[2020-04-29 07:45] LABS: WBC 7.9 10x3/uL (4.8-10.8)
[2020-04-29 09:05] VITALS: BP 158/44
[2020-04-29 12:38] VITALS: BP 154/57
[2020-04-29 15:00] VITALS: BP 121/85
--- NOTE | 2020-04-29 16:52 | MORECARE ---
CASE MANAGEMENT DISCHARGE SUMMARY PATIENT: ALISTAIR CLEANING UNIT: [id number] ADM DATE: 04/23/20 AGE: 59 : 58 SEX: F ROOM/BED: D.2239 AUTHOR: JESSICADOC PHYSICIAN: REFERRING PHYSICIAN: PALMA PIÑA MD DATE OF SERVICE: 04/29/20 Discharge Plan Patient Name: ALISTAIR CLEANING Facility: [facility]:[place] : 1960 Planned Disposition: Anticipated Discharge Date: Discharge Date: Expected LOS: Initial Reviewer: [id number] Initial Review Date: 04/23/2020 Generated: 04/29/20 5:51 pm Comments DCP- Discharge Planning Updated by [email or web address]: Slime Coulter on 04/29/20 3:[address] Patient Name: ALISTAIR CLEANING Admission Status: ER Accout number: [id number] Admission Date: 04-23-2020 : 1960 Admission Diagnosis:PAIN IN RIGHT FOOT Attending: PALMA PIÑA Current LOS: 6 Anticipated DC Date: Planned Disposition: Primary Insurance: [place] Discharge Planning Comments: CM MET WITH PATIENT AND DISCUSSED DC NEEDS. OFFERED [facility] BUT PATIENT DOES NOT WANT [facility] SHE WANTS TO DC TO HOME WITH HOME HEALTH. SHE WILL ALSO NEED A WALKER, I WILL FAX ORDER TO [facility]. CM TO FOLLOW AND ASSIST NEEDED. Tube Lancer: Slime Coulter DCP- Discharge Planning Updated by [email or web address]: Slime Coulter on 04/25/20 9:[address] Patient Name: ALISTAIR CLEANING Admission Status: ER Accout number: [id number] Admission Date: 04-23-2020 : 1960 Admission Diagnosis:PAIN IN RIGHT FOOT Attending: PALMA PIÑA Current LOS: 2 Anticipated DC Date: Planned Disposition: Primary Insurance: [place] Discharge Planning Comments: CM met with patient at bedside after explaining CM role and obtaining verbal consent. CM discussed availability / needs of home health, REHAB and medical equipment. STATES MAY NEED A WALKER AND HOME HEALTH. IS SCHEDULED FOR A BELOW THE KNEE AMPUTATION, WILL ASSESS FOR FURTHER NEEDS AFTER SURGERY. Tube Lancer: Slime Coulter DCPIA - Discharge Planning Initial Assessment Updated by [email or web address]: Slime Coulter on 04/25/20 10:43 am * Is the patient Alert and Oriented? Yes * PCP SKETAS * Preadmission Environment Home with Family * ADLs Independent * Other Equipment BSC,WC * Community resources currently utilized None * Additional services required to return to the preadmission environment? Yes * Can the patient safely return to the preadmission environment? Yes * Has this patient been hospitalized within the prior 30 days at any hospital? Yes Last DP export: 04/25/20 9:51 a Patient Name: ALISTAIR CLEANING Page 89163 at 1652 All edits/amendments must be made on the electronic document DICTATION DATE: 04/29/201650 OUTCOMES ANALYST: RAUL 04/29/201650 RPT#: [id number] DC DATE: STATUS: ADM IN [facility] [address] [place] [address] END OF REPORT
--- NOTE | 2020-04-29 19:37 | NUR ---
I have reviewed this patient and I concur with the Shift Assessment completed by the Licensed Practical Nurse today this shift.
[2020-04-29 20:00] VITALS: BP 182/79
[2020-04-30] VITALS: BP 185/71
--- NOTE | 2020-04-30 00:58 | NUR ---
REC'D CHGE OF SHIFT WALKING ROUNDS IN BED. FAMILY MEMBER AT BEDSIDE. ACEWRAP DRSG. CDI ELEVATED ON PILLOW. WILL CONTINUE TO MONITOR FOR ANY CHGES. IN NEUROVASCULAR STATUS AND FOLLOW CURRENT PLAN OF CARE
[2020-04-30 04:00] VITALS: BP 161/52
[2020-04-30 06:47] LABS: BASOPHILS 0.4 % (0-2); EOSINOPHILS 4.9 % (0-7); HEMATOCRIT 28.8 % (36.0-48.0); HEMOGLOBIN 8.8 g/dL (12-16); IMMATURE GRANULOCYTES 0.1 % (0-5); LYMPHOCYTES 28.7 % (15-50); MCH 27.8 pg (26.0-34.0); MCHC 30.6 g/dL (31.0-37.0); MCV 90.9 fL (80.0-100.0); MEAN PLATELET VOLUME 9.9 fL (7.4-10.4); MONOCYTES 9.7 % (2-11); NEUTROPHILS 56.2 % (40-80); PLATELET COUNT 317 10x3/uL (130-400); RBC 3.17 10x6/uL (4.00-5.40); RDW 14.4 % (11.5-14.5); WBC 7.4 10x3/uL (4.8-10.8)
[2020-04-30 07:00] VITALS: BP 155/60
[2020-04-30 07:02] LABS: ALBUMIN 2.1 g/dL (3.4-5.0); ANION GAP 8.7 mmol/L (8-16); BILIRUBIN - TOTAL 0.24 mg/dL (0.2-1.3); CALCIUM 8.5 mg/dL (8.5-10.1); CARBON DIOXIDE 26.9 mmol/L (21.0-32.0); CREATININE - SERUM 1.3 mg/dL (0.6-1.3); POTASSIUM - SERUM 3.6 mmol/L (3.5-5.1); PROTEIN - SERUM 7.5 g/dL (6.4-8.2)
--- NOTE | 2020-04-30 09:43 | NUR ---
Rehab Note- Acute Inpatient REhab prescreen order received. THe patient has Medicaid benefits and cannot be accepted to [facility] Acute Inpatient Rehab. Thank you for this referral! Evelyne Schmidt RN Clinical Liaison, [facility] Rehab
--- NOTE | 2020-04-30 10:39 | MORECARE ---
CASE MANAGEMENT DISCHARGE SUMMARY PATIENT: ALISTAIR CLEANING UNIT: [id number] ADM DATE: 04/23/20 AGE: 59 : 58 SEX: F ROOM/BED: D.2239 AUTHOR: ORQUIDEA LOPEZ PHYSICIAN: REFERRING PHYSICIAN: PALMA PIÑA MD DATE OF SERVICE: 04/30/20 Discharge Plan Patient Name: ALISTAIR CLEANING Facility: [facility]:[place] : 1960 Planned Disposition: Anticipated Discharge Date: Discharge Date: Expected LOS: Initial Reviewer: [id number] Initial Review Date: 04/23/2020 Generated: 04/30/20 11:39 am Comments DCP- Discharge Planning Updated by [id number]: Slime Coulter on 04/30/20 9:[address] Patient Name: ALISTAIR CLEANING Admission Status: ER Accout number: [id number] Admission Date: 04-23-2020 : 1960 Admission Diagnosis:PAIN IN RIGHT FOOT Attending: PALMA PIÑA Current LOS: 7 Anticipated DC Date: Planned Disposition: Primary Insurance: [place] Discharge Planning Comments: SPOKE WITH PATIENT AGAIN ABOUT DC PLANNING. SHE THOUGHT ABOUT IT AND WOULD LIKE [facility]. CAMI SIGNED FOR [facility] AT [facility]. I WILL FAX OT EVAL TO THEM WHEN ITS AVAILABLE. WAITING CALL BACK ON APPROVAL. Cloth Washer Back Tender: Slime Coulter DCP- Discharge Planning Updated by [id number]: Slime Coulter on 04/29/20 3:[address] Patient Name: ALISTAIR CLEANING Admission Status: ER Accout number: [id number] Admission Date: 04-23-2020 : 1960 Admission Diagnosis:PAIN IN RIGHT FOOT Attending: PALMA PIÑA Current LOS: 6 Anticipated DC Date: Planned Disposition: Primary Insurance: [place] Discharge Planning Comments: CM MET WITH PATIENT AND DISCUSSED DC NEEDS. OFFERED [facility] BUT PATIENT DOES NOT WANT [facility] SHE WANTS TO DC TO HOME WITH HOME HEALTH. SHE WILL ALSO NEED A WALKER, I WILL FAX ORDER TO [facility]. CM TO FOLLOW AND ASSIST NEEDED. Cloth Washer Back Tender: Slime Coulter DCP- Discharge Planning Updated by [email or web address]: Slime Coulter on 04/25/20 9:[address] Patient Name: ALISTAIR CLEANING Admission Status: ER Accout number: [id number] Admission Date: 04-23-2020 : 1960 Admission Diagnosis:PAIN IN RIGHT FOOT Attending: PALMA PIÑA Current LOS: 2 Anticipated DC Date: Planned Disposition: Primary Insurance: MEDICAID [place] Discharge Planning Comments: CM met with patient at bedside after explaining CM role and obtaining verbal consent. CM discussed availability / needs of home health, REHAB and medical equipment. STATES MAY NEED A WALKER AND HOME HEALTH. IS SCHEDULED FOR A BELOW THE KNEE AMPUTATION, WILL ASSESS FOR FURTHER NEEDS AFTER SURGERY. Cloth Washer Back Tender: Slime Coulter DCPIA - Discharge Planning Initial Assessment Updated by [id number]: Slime Coulter on 04/25/20 10:43 am * Is the patient Alert and Oriented? Yes * PCP SKETAS * Preadmission Environment Home with Family * ADLs Independent * Other Equipment BSC,WC * Community resources currently utilized None * Additional services required to return to the preadmission environment? Yes * Can the patient safely return to the preadmission environment? Yes * Has this patient been hospitalized within the prior 30 days at any hospital? Yes External Providers External Provider: [facility] Next Contact Date: Service Request Date: Service Type: Resolution: Reviewer: Comments: Coverage Notice Reviewer: [id number] - Slime Coulter Notice Issued Date-Time: 04/30/2020 10:34 Notice Type: Patient Choice Letter Notice Delivered To: Patient Relationship to Patient: Professional Engineer Name: Delivery Method: - Milla Days: Prior Verbal Notification: Recipient Understood Notice: Yes Recipient Signature: Yes Med Rec Note Co-signed by Attending: Coverage Notice Comment: [facility] Last DP export: 04/29/20 3:52 p Patient Name: ALISTAIR CLEANING Page 15111 at 1039 All edits/amendments must be made on the electronic document DICTATION DATE: 04/30/20 1039 INTERNAL SALES: RAUL 04/30/20 1039 RPT#: [id number] DC DATE: STATUS: ADM IN [facility] [address] [place] [address] END OF REPORT
[2020-04-30 11:00] VITALS: BP 143/48
--- NOTE | 2020-04-30 13:49 | NUR ---
IV ACCESS LOST. FOUR ATTEMPTS MADE BY TWO DIFFERENT RN'S WITH NO SUCCESS. NOTIFING VASCULAR ACCESS NURSE. WAITING FOR CALL BACK.
--- NOTE | 2020-04-30 14:23 | NUR ---
NUTRITION F/U CHART REVIEWED. PT POST OP DAY 5 RT BKA. TOLERATING DIABETIC DIET WITH 100% INTAKE RECENT MEALS. WILL CONTINUE TO PROVIDE DIET, MONITOR PO INTAKE. RD FOLLOWING
[2020-04-30 15:00] VITALS: BP 172/80
--- NOTE | 2020-04-30 16:28 | MORECARE ---
CASE MANAGEMENT DISCHARGE SUMMARY PATIENT: ALISTAIR CLEANING UNIT: [id number] ADM DATE: 04/23/20 AGE: 59 : 58 SEX: F ROOM/BED: D.2239 AUTHOR: ORQUIDEA LOPEZ PHYSICIAN: REFERRING PHYSICIAN: PALMA PIÑA MD DATE OF SERVICE: 04/30/20 Discharge Plan Patient Name: ALISTAIR CLEANING Facility: [facility]:[place] : 1960 Planned Disposition: Anticipated Discharge Date: Discharge Date: Expected LOS: Initial Reviewer: [id number] Initial Review Date: 04/23/2020 Generated: 04/30/20 5:28 pm Comments DCP- Discharge Planning Updated by [id number]: Slime Coulter on 04/30/20 3:[address] Patient Name: ALISTAIR CLEANING Admission Status: ER Accout number: [id number] Admission Date: 04-23-2020 : 1960 Admission Diagnosis:PAIN IN RIGHT FOOT Attending: PALMA PIÑA Current LOS: 7 Anticipated DC Date: Planned Disposition: Primary Insurance: [place]ID [place] Discharge Planning Comments: CM SPOKE WITH [facility], THEY PLAN TO ACCEPT PATIENT TOMORROW. DR. CAIN HAS BEEN NOTIFIED AND HE PLANS TO SEE PATIENT TOMORROW BEFORE SHE CAN BE DC'D. PEYTON BINGHAM ALSO AWARE. CM TO FOLLOW AND ASSIST NEEDED. UPDATES HAVE BEEN FAXED TO [facility]. Medical Records Secretary: Slime Coulter DCP- Discharge Planning Updated by [email or web address]: Slime Coulter on 04/30/20 9:[address] Patient Name: ALISTAIR CLEANING Admission Status: ER Accout number: [id number] Admission Date: 04-23-2020 : 1960 Admission Diagnosis:PAIN IN RIGHT FOOT Attending: PALMA PIÑA Current LOS: 7 Anticipated DC Date: Planned Disposition: Primary Insurance: [place] Discharge Planning Comments: SPOKE WITH PATIENT AGAIN ABOUT DC PLANNING. SHE THOUGHT ABOUT IT AND WOULD LIKE [facility]. CAMI SIGNED FOR [facility] AT [facility]. I WILL FAX OT EVAL TO THEM WHEN ITS AVAILABLE. WAITING CALL BACK ON APPROVAL. Medical Records Secretary: Slime Coulter DCP- Discharge Planning Updated by [id number]: Slime Coulter on 04/29/20 3:[address] Patient Name: ALISTAIR CLEANING Admission Status: ER Accout number: [id number] Admission Date: 04-23-2020 : 1960 Admission Diagnosis:PAIN IN RIGHT FOOT Attending: PALMA PIÑA Current LOS: 6 Anticipated DC Date: Planned Disposition: Primary Insurance: [place] Discharge Planning Comments: CM MET WITH PATIENT AND DISCUSSED DC NEEDS. OFFERED [facility] BUT PATIENT DOES NOT WANT [facility] SHE WANTS TO DC TO HOME WITH HOME HEALTH. SHE WILL ALSO NEED A WALKER, I WILL FAX ORDER TO [facility]. CM TO FOLLOW AND ASSIST NEEDED. Medical Records Secretary: Slime Coulter DCP- Discharge Planning Updated by [email or web address]: Slime Coulter on 04/25/20 9:[address] Patient Name: ALISTAIR CLEANING Admission Status: ER Accout number: [id number] Admission Date: 04-23-2020 : 1960 Admission Diagnosis:PAIN IN RIGHT FOOT Attending: PALMA PIÑA Current LOS: 2 Anticipated DC Date: Planned Disposition: Primary Insurance: [place] Discharge Planning Comments: CM met with patient at bedside after explaining CM role and obtaining verbal consent. CM discussed availability / needs of home health, REHAB and medical equipment. STATES MAY NEED A WALKER AND HOME HEALTH. IS SCHEDULED FOR A BELOW THE KNEE AMPUTATION, WILL ASSESS FOR FURTHER NEEDS AFTER SURGERY. Medical Records Secretary: Slime Coulter DCPIA - Discharge Planning Initial Assessment Updated by [email or web address]: Slime Coulter on 04/25/20 10:43 am * Is the patient Alert and Oriented? Yes * PCP SKETAS * Preadmission Environment Home with Family * ADLs Independent * Other Equipment BSC,WC * Community resources currently utilized None * Additional services required to return to the preadmission environment? Yes * Can the patient safely return to the preadmission environment? Yes * Has this patient been hospitalized within the prior 30 days at any hospital? Yes Coverage Notice Reviewer: [id number] - Slime Coulter Notice Issued Date-Time: 04/30/2020 10:34 Notice Type: Patient Choice Letter Notice Delivered To: Patient Relationship to Patient: Planer Chain Offbearer Name: Delivery Method: - Milla Days: Prior Verbal Notification: Recipient Understood Notice: Yes Recipient Signature: Yes Med Rec Note Co-signed by Attending: Coverage Notice Comment: [facility] Last DP export: 04/30/20 9:39 a Patient Name: ALISTAIR CLEANING Page 22552 at 1628 All edits/amendments must be made on the electronic document DICTATION DATE: 04/30/201627 PATROL SERGEANT: RAUL 04/30/201627 RPT#: [id number] DC DATE: STATUS: ADM IN [facility] [address] [place] [address] END OF REPORT
[2020-04-30 20:00] VITALS: BP 174/72
--- NOTE | 2020-05-01 02:25 | NUR ---
I have reviewed this patient and I concur with the Shift Assessment completed by the Licensed Practical Nurse today this shift.
[2020-05-01 04:00] VITALS: BP 192/90
[2020-05-01 06:54] LABS: BASOPHILS 0.5 % (0-2); EOSINOPHILS 4.1 % (0-7); IMMATURE GRANULOCYTES 0.1 % (0-5); LYMPHOCYTES 31.1 % (15-50); MCH 27.9 pg (26.0-34.0); MCV 89.8 fL (80.0-100.0); MONOCYTES 9.5 % (2-11); NEUTROPHILS 54.7 % (40-80); PLATELET COUNT 333 10x3/uL (130-400); RBC 3.23 10x6/uL (4.00-5.40); RDW 14.4 % (11.5-14.5); WBC 7.3 10x3/uL (4.8-10.8)
[2020-05-01 07:13] LABS: ALBUMIN 2.2 g/dL (3.4-5.0); BILIRUBIN - TOTAL 0.25 mg/dL (0.2-1.3); CARBON DIOXIDE 27.2 mmol/L (21.0-32.0); CREATININE - SERUM 1.1 mg/dL (0.6-1.3); POTASSIUM - SERUM 3.2 mmol/L (3.5-5.1); PROTEIN - SERUM 7.9 g/dL (6.4-8.2)
--- NOTE | 2020-05-01 07:15 | NUR ---
RECEIVED BEDSIDE REPORT. PT SITTING UP IN BED A&O X4. ABD APPEARS DISTENDED, SCARS ON MID ABD. RIGHT BKA, DRSG C/D/I. PT ABLE TO AMBULATE TO BSC, WITH TWO PERSON ASSIST AND WALKER. EDUCATED PT ON CL AND NEEDS, VERBALIZED UNDERSTANDING. BED LOW, RAILS X2. CL IN REACH.
[2020-05-01 08:02] VITALS: BP 178/62
[2020-05-01] MEDS ORDERED: COLACE100 MG PO (10:37)
[2020-05-01] MEDS ORDERED: PLAVIX75 MG PO (10:37)
--- NOTE | 2020-05-01 11:00 | NUR ---
ASSISTED PT TO BSC, PT TOLERATED WELL. ASSISTED PT BACK TO BED, BED ALARM ON, BED LOW, RAILS X2. CL IN REACH.
[2020-05-01 12:02] VITALS: BP 96/85
--- NOTE | 2020-05-01 13:45 | NUR ---
VEGETABLE THINNER ASSISTED PT TO BSC. PT DAUGHTER TRIED TO HELP PT PULL UP SHORTS. PT SLIDE DOWN SIDE OF BSC TO FLOOR, LANDING ON BUTTOCKS. PT DENIES ANY PAIN, STATES SHE DID NOT FALL HARD AND AVOIDED HITTING HER RIGHT LEG. REPORTED INCIDENT TO PCP, VOCATIONAL TRAINER AND MADE A CSTARS REPORT. PT DENIES FURTHER NEEDS. BED LOW, CL IN REACH, WILL CONTINUE TO MONITOR.
--- NOTE | 2020-05-01 14:34 | NUR ---
OT NOTE: PT DOING BETTER, HOWEVER, DIFFICULT TO PERFORM ACTIVITIES IN TIMELY MANNER DUE TO CONTINUAL AND REPEATED INFORMATION PROVIDED BY PT. PT VERY WORRIED ABOUT WHOMEVER CAME TO SEE HER FROM REHAB REGARDING THE NEED FOR HER TO BRING HER R SHOE.. CONTINUED TO EXPLAIN TO PT NOT TO WORRY ABOUT IT AND THAT IT WOULD GET WORKED OUT, HOWEVER, PT KEPT TALKING ABOUT IT AND GETTING MORE UPSET. PT ABLE TO PERFORM BED MOB WITHOUT ASSIST; PERFOREMD SIT TO STAND WITH WALKER AND MOD ASSIST; ABLE TO PIVOT FROM BED TO BS COMMODE WITH MOD ASSIST; TOILET HYGIENE WITH MIN ASSIST; PIVOT BACK TO BED WITH MOD ASSIST; EDUCATED PT ON SAFETY AND THAT SHE WAS NOT TO TRANSFER TO BS COMMODE WITH ANYONE BUT THERAPY AT THIS TIME UNTIL SHE GOT STRONGER. PERFORMED UE EXS WHILE ON EOB; SIMPLE GROOMING TASKS WITH SET UP VASILIY ARZOLA OTR/L
--- NOTE | 2020-05-01 17:15 | MORECARE ---
CASE MANAGEMENT DISCHARGE SUMMARY PATIENT: ALISTAIR CLEANING UNIT: [id number] ADM DATE: 04/23/20 AGE: 59 : 58 SEX: F ROOM/BED: D.2239 AUTHOR: JESSICADOC PHYSICIAN: REFERRING PHYSICIAN: PALMA PIÑA MD DATE OF SERVICE: 05/01/20 Discharge Plan Patient Name: ALISTAIR CLEANING Facility: [facility]:[place] : 1960 Planned Disposition: Anticipated Discharge Date: Discharge Date: Expected LOS: Initial Reviewer: [id number] Initial Review Date: 04/23/2020 Generated: 05/01/20 6:15 pm Comments DCP- Discharge Planning Updated by [id number]: Slime Coulter on 05/01/20 4:[address] Patient Name: ALISTAIR CLEANING Admission Status: ER Accout number: [id number] Admission Date: 04-23-2020 : 1960 Admission Diagnosis:PAIN IN RIGHT FOOT Attending: PALMA PIÑA Current LOS: 8 Anticipated DC Date: Planned Disposition: Primary Insurance: [place]ID [place] Discharge Planning Comments: HAND FAXED MAR AND DC SUMMARY TO [facility] PER THEIR REQUEST. ANTICIPATE UPPER AND BOTTOM LACER HAND APPROX 1730 PM TODAY. Vacuum Forming Machine Operator: Slime Coulter DCP- Discharge Planning Updated by [email or web address]: Slime Coulter on 04/30/20 3:[address] Patient Name: ALISTAIR CELANING Admission Status: ER Accout number: [id number] Admission Date: 04-23-2020 : 1960 Admission Diagnosis:PAIN IN RIGHT FOOT Attending: PALMA PIÑA Current LOS: 7 Anticipated DC Date: Planned Disposition: Primary Insurance: [place]ID [place] Discharge Planning Comments: CM SPOKE WITH [facility], THEY PLAN TO ACCEPT PATIENT TOMORROW. DR. CAIN HAS BEEN NOTIFIED AND HE PLANS TO SEE PATIENT TOMORROW BEFORE SHE CAN BE DC'D. PEYTON BINGHAM ALSO AWARE. CM TO FOLLOW AND ASSIST NEEDED. UPDATES HAVE BEEN FAXED TO [facility]. Vacuum Forming Machine Operator: Slime Coulter DCP- Discharge Planning Updated by [id number]: Slime Coulter on 04/30/20 9:[address] Patient Name: ALISTAIR CLEANING Admission Status: ER Accout number: [id number] Admission Date: 04-23-2020 : 1960 Admission Diagnosis:PAIN IN RIGHT FOOT Attending: PALMA PIÑA Current LOS: 7 Anticipated DC Date: Planned Disposition: Primary Insurance: [place] Discharge Planning Comments: SPOKE WITH PATIENT AGAIN ABOUT DC PLANNING. SHE THOUGHT ABOUT IT AND WOULD LIKE [facility]. CAMI SIGNED FOR [facility] AT [facility]. I WILL FAX OT EVAL TO THEM WHEN ITS AVAILABLE. WAITING CALL BACK ON APPROVAL. Vacuum Forming Machine Operator: Slime Coulter DCP- Discharge Planning Updated by [id number]: Slime Coulter on 04/29/20 3:[address] Patient Name: ALISTAIR CLEANING Admission Status: ER Accout number: [id number] Admission Date: 04-23-2020 : 1960 Admission Diagnosis:PAIN IN RIGHT FOOT Attending: PALMA PIÑA Current LOS: 6 Anticipated DC Date: Planned Disposition: Primary Insurance: [place] Discharge Planning Comments: CM MET WITH PATIENT AND DISCUSSED DC NEEDS. OFFERED [facility] BUT PATIENT DOES NOT WANT [facility] SHE WANTS TO DC TO HOME WITH HOME HEALTH. SHE WILL ALSO NEED A WALKER, I WILL FAX ORDER TO [facility]. CM TO FOLLOW AND ASSIST NEEDED. Vacuum Forming Machine Operator: Slime Coulter DCP- Discharge Planning Updated by [email or web address]: Slime Coulter on 04/25/20 9:[address] Patient Name: ALISTAIR CLEANING Admission Status: ER Accout number: [id number] Admission Date: 04-23-2020 : 1960 Admission Diagnosis:PAIN IN RIGHT FOOT Attending: PALMA PIÑA Current LOS: 2 Anticipated DC Date: Planned Disposition: Primary Insurance: [place] Discharge Planning Comments: CM met with patient at bedside after explaining CM role and obtaining verbal consent. CM discussed availability / needs of home health, REHAB and medical equipment. STATES MAY NEED A WALKER AND HOME HEALTH. IS SCHEDULED FOR A BELOW THE KNEE AMPUTATION, WILL ASSESS FOR FURTHER NEEDS AFTER SURGERY. Vacuum Forming Machine Operator: Slime Coulter DCPIA - Discharge Planning Initial Assessment Updated by [email or web address]: Slime Coulter on 04/25/20 10:43 am * Is the patient Alert and Oriented? Yes * PCP SKETAS * Preadmission Environment Home with Family * ADLs Independent * Other Equipment BSC,WC * Community resources currently utilized None * Additional services required to return to the preadmission environment? Yes * Can the patient safely return to the preadmission environment? Yes * Has this patient been hospitalized within the prior 30 days at any hospital? Yes Coverage Notice Reviewer: [id number] Matt Coulter Notice Issued Date-Time: 04/30/2020 10:34 Notice Type: Patient Choice Letter Notice Delivered To: Patient Relationship to Patient: Director Of Graduate Admissions Name: Delivery Method: - Milla Days: Prior Verbal Notification: Recipient Understood Notice: Yes Recipient Signature: Yes Med Rec Note Co-signed by Attending: Coverage Notice Comment: [facility] Last DP export: 04/30/20 3:28 p Patient Name: ALISTAIR CLEANING Page 23248 at 1715 All edits/amendments must be made on the electronic document DICTATION DATE: 05/01/201714 GEAR GRINDER: RAUL 05/01/201714 RPT#: [id number] DC DATE: STATUS: ADM IN [facility] [address] [place] [address] END OF REPORT
--- NOTE | 2020-05-01 17:30 | NUR ---
EDUCATED PT ON DISCHARGE INSTRUCTIONS, MEDICATIONS, FOLLOW UP APT AND ACTIVITY, VERBALIZED UNDERSTANDING AND SIGNED PAPERWORK. PT ESCORTED BY [facility] EMPLOYEE TO FRONT ENTRANCE VIA WHEELCHAIR.
--- NOTE | 2020-05-01 17:57 | NUR ---
RECEIVED BEDSIDE REPORT. PT SITTING UP IN BED A&O X4. ABD APPEARS DISTENDED, SCAR ON MID ABD. RIGHT BKA, DRSG C/D/I. PT ABLE TO AMBULATE TO BSC WITH TWO PERSON ASSIST. EDUCATED PT ON CL AND NEEDS, VERBALIZED UNDERSTANDING. BED LOW, RAILS X2. CL IN REACH.
--- NOTE | 2020-05-02 13:46 | OP ---
PATIENT NAME: ALISTAIR CLEANING MEDICAL RECORD: [id number] :58 LOCATION:[facility] ADMISSION DATE:04/23/20 SURGEON: MELANIE CAIN MD DATE OF OPERATION: 04/28/2020 PREOPERATIVE DIAGNOSIS: Right foot infection/osteomyelitis status post open below-knee amputation. POSTOPERATIVE DIAGNOSIS: Right foot infection/osteomyelitis status post open below-knee amputation. PROCEDURE PERFORMED: 1. Right below-knee amputation. 2. Application of wound VAC, right lower extremity (less than 50 cm-squared). INDICATIONS: Ms. Cleaning is a 59-year-old female with history of right foot infection, osteomyelitis. She underwent open below-knee amputation last week, returns to the OR today for formalization of her below-knee amputation. Risks, benefits, and alternatives of surgery were discussed with the patient. Consent was obtained. DESCRIPTION OF PROCEDURE: The patient was met in the holding area where her identity and confirmation of procedure was performed. The right lower extremity was marked. She was taken to the operating room where she was placed supine on the operating table. Anesthesia was administered, tourniquet was applied in the right leg. The right leg was prepped and draped in a sterile fashion. The patient was on scheduled antibiotics; therefore, did not receive any immediately preop. A timeout was performed for initiation of the case. The leg was exsanguinated and the tourniquet was raised. Total tourniquet time was 88 minutes. Our amputation level was marked 15 cm below the joint line. The skin was then incised for amputation and flap. We incised through the skin and subcutaneous tissue, dissecting down to the fascia, the anterior and lateral compartment. The muscle was transected as well as the periosteum dissected down to the tibia and the anterior surface of the fibula. Retractors were then placed posterior and our tibia and fibular cuts were completed. The tissue from the posterior compartment was then stripped off the back of the tibia and fibula as the anterior portion of the lower leg was removed. The deep posterior compartment was debulked and removed as well. Our vascular bundles were identified and tied. These were tied off with 0 silk suture. The anterior surface of the tibia was cut and then smoothed with the saw. Hemostasis was obtained and the leg was irrigated thoroughly with saline. The tourniquet was then let down and we checked for any active arterial bleeding, which there was none. It was then put back up and continued with our procedure. The posterior flap was fashioned and the tendon from the gastroc soleus was brought up and attached to the anterior fascia. It was attached to the anterior fascia with 0 Vicryl suture. The sural nerve was identified and ligated. We then fashioned our skin edges of the posterior flap and reapproximated those to the anterior tissues with 2-0 Vicryl. The skin was then closed with 3-0 nylon suture. Incisional wound VAC was then placed and covered with a sterile dressing. Good compression was confirmed in the operating room. This completed our procedure. The patient was turned back over to anesthesia where she was awakened, extubated, and taken to recovery room in stable condition. POSTOPERATIVE PLAN: The patient is going to return to the floor for continued postoperative care. We will continue her IV antibiotics for a couple of days OPERATIVE REPORT [id number] ALISTAIR CLEANING and then should be able to discontinue those. Physical therapy will be consulted to assist with mobilization. PLAN: Leave the sutures in place for 4 weeks. COMPLICATIONS: None. ANESTHESIA: General with peripheral nerve block. Estimated blood loss 200 mL. TRANSINT:[id number] Voice Confirmation ID: [id number] DOCUMENT ID: [id number] MELANIE CAIN MD at 1346 CC: [id number] DICTATION DATE: 04/28/20 1058 COMPLIANCE MANAGER: 04/28/202033 DIS IN 05/01/20 [facility] [address] [place] [address]
--- NOTE | 2020-05-02 13:47 | OP ---
PATIENT NAME: ALISTAIR CLEANING MEDICAL RECORD: [id number] :58 LOCATION:[facility] ADMISSION DATE:04/23/20 SURGEON: MELANIE CAIN MD DATE OF OPERATION: 04/25/2020 PREOPERATIVE DIAGNOSIS: Right foot infection/osteomyelitis. POSTOPERATIVE DIAGNOSIS: Right foot infection/osteomyelitis. PROCEDURE PERFORMED: 1. Open below-knee amputation, right lower extremity. 2. Application of wound VAC, right lower extremity (less than 50 cm-squared). INDICATIONS: Ms. Cleaning is a 59-year-old female with history of right foot ulcer. She went on to develop osteomyelitis of the fifth metatarsal and cuboid and had I&D with tendon transfer performed by Dr. Bundy on April 04. This wound has gone on to dehisce. She now has extensive open wound and infection present over the lateral foot. She has poor circulation to her foot. I talked with her about these findings and the need for amputation as I did not see any potential for limb salvage. She is agreeable to this. We will plan to perform this in a staged manner with the open amputation and wound VAC placement followed by formalization. Risks, benefits, and alternatives of surgery were discussed with the patient including but not limited to pain, infection, bleeding, damage to surrounding structures and potential need for further surgery. All questions were answered and consent was obtained. DESCRIPTION OF PROCEDURE: The patient was met in the holding area where her identity and confirmation of procedure was performed. The right lower extremity was marked. She was taken to the operating room where she was placed supine on the operating table. Anesthesia was administered. Tourniquet was applied to the right thigh. The right leg was prepped and draped in a sterile fashion. The patient received preoperative antibiotics and timeout was performed for initiating the case. Upon initiation of the case, the leg was gravity exsanguinated and the tourniquet was raised. Total tourniquet time was 13 minutes. A peripheral incision was made just above the ankle and malleoli around the circumference of the ankle. Cautery was then used to dissect through the deep tissues. The tibia was isolated and transected with the saw blade. Fibula was then isolated and transected as well. The neurovascular bundles were tied with a hemostat. These were then tied off with 0 silk suture. Tourniquet was then let down. We checked for hemostasis and any further bleeding was addressed. A wound VAC was then applied to the wound measuring 6 x 7 cm. The VAC was noted to have good compression and a dressing was then used to cover up the end of the leg. The patient was turned back over to anesthesia. She was awakened, extubated, and taken to recovery room in stable condition. POSTOPERATIVE PLAN: The patient is going to return to the hospital for routine postoperative care. We will continue her IV antibiotics. Plan for formalization in the next few days. COMPLICATIONS: None. ANESTHESIA: General with peripheral block. ESTIMATED BLOOD LOSS: 25 mL. OPERATIVE REPORT [id number] ALISTAIR CLEANING TRANSINT:[id number] Voice Confirmation ID: [id number] DOCUMENT ID: [id number] MELANIE CAIN MD at 1347 CC: [id number] DICTATION DATE: 04/25/20 1512 COPY CUTTER: 04/25/20 2335 DIS IN 05/01/[address] [address]
== END 2020-05-01 18:08 | DRG 617 ==
LOC: D.ER 10:09 → D.EDHOLD 13:19 → D.MS 13:19
PROVIDERS: Emergency Medicine; Family Medicine Adult Medicine; General Practice; Orthopaedic Surgery; ADMIT Family Medicine; ATTEND Family Medicine
PROC: 0Y6H0Z3 Detachment at Right Lower Leg, Low, Open Approach (ICD-10-PCS; principal; 2020-04-25 11:00)
PROC: 0Y6H0Z2 Detachment at Right Lower Leg, Mid, Open Approach (ICD-10-PCS; 2020-04-28)
DX: E11.69 Type 2 diabetes mellitus with other specified complication (principal); M86.8X7 Other osteomyelitis, ankle and foot; E87.1 Hypo-osmolality and hyponatremia; Z68.43 Body mass index [BMI] 50.0-59.9, adult; D62 Acute posthemorrhagic anemia; E11.621 Type 2 diabetes mellitus with foot ulcer; I10 Essential (primary) hypertension; K21.9 Gastro-esophageal reflux disease without esophagitis; E66.9 Obesity, unspecified